=== PATIENT | female | born 1965 | race Two or more races ===

== ENCOUNTER 2016-03-08 17:11 | Observation (INO) | payer OTHER ==
[2016-03-08] MEDS ORDERED: ASPIRIN 81 MG TABLET, CHEWABLE PO ONE (17:16)
--- NOTE | 2016-03-08 18:40 | ER Document Report ---
ED Medical Screen (RME) - General Chief Complaint: Leg Swelling Stated Complaint: LEG PRESSURE AND CHEST PAIN Notes: 50 yo female sent from Urgent care for bilat lower leg pain and swelling and left sided chest pain intermittantly x 2-3 days. + recent car trip to [place] , 6hr in vehicle. + hx/o HTN, recent stroke in September. no residual deficits. non smoker. TRAVEL OUTSIDE OF THE [place] IN LAST 30 DAYS: No - Related Data Allergies/Adverse Reactions: codeine [Codeine] Allergy (Severe, Verified 03/08/16 18:01) nausea,dizziness Past Medical History - Social History Chew tobacco use (# tins/day): No Frequency of alcohol use: None - Past Medical History Cardiac Medical History: Reports: Hx Heart Attack, Hx Hypertension - meds 5 yrs Denies: Hx Coronary Artery Disease Pulmonary Medical History: Denies: Hx Asthma, Hx Bronchitis, Hx COPD, Hx Pneumonia Neurological Medical History: Reports: Hx Migraine. Denies: Hx Cerebrovascular Accident, Hx Seizures Musculoskeltal Medical History: Denies Hx Arthritis Psychiatric Medical History: Reports: Hx Depression Past Surgical History: Reports: Hx Orthopedic Surgery - right carpal tunnel surgery 2010 - Immunizations Immunizations up to date: Yes Hx Diphtheria, Pertussis, Tetanus Vaccination: Yes Physical Exam - Vital signs Vitals: Temp Pulse Resp BP Pulse Ox 98.1 F 72 16 140/85 H 98 03/08/16 18:02 03/08/16 18:02 03/08/16 18:02 03/08/16 18:02 03/08/16 18:02 Course - Vital Signs Vital signs: Temp Pulse Resp BP Pulse Ox 98.1 F 72 16 140/85 H 98 03/08/16 18:02 03/08/16 18:02 03/08/16 18:02 03/08/16 18:02 03/08/16 18:02
[2016-03-08 19:05] LABS: ABSOLUTE BASOPHILS # (AUTO) 0.1 10^3/uL (0.0-0.2); ABSOLUTE EOSINOPHILS # (AUTO) 0.2 10^3/uL (0.0-0.6); ABSOLUTE LYMPHOCYTES (AUTO) 2.8 10^3/uL (0.5-4.7); ABSOLUTE MONOCYTES (AUTO) 0.5 10^3/uL (0.1-1.4); ABSOLUTE NEUT (AUTO) 4.6 10^3/uL (1.7-8.2); BASOPHILS % (AUTO) 0.7 % (0-2); EOSINOPHILS % (AUTO) 2.3 % (0-6); HEMATOCRIT 38.2 % (36.0-47.0); HEMOGLOBIN 12.7 g/dL (12.0-15.5); HGB HCT DIFFERENCE -0.1; LYMPHOCYTES % (AUTO) 34.2 % (13-45); MEAN CORPUSCULAR HEMOGLOBIN 27.5 pg (27.0-33.4); MEAN CORPUSCULAR HGB CONC 33.2 g/dL (32.0-36.0); MEAN CORPUSCULAR VOLUME 83 fl (80-97); MONOCYTES % (AUTO) 6.5 % (3-13); RED BLOOD COUNT 4.61 10^6/uL (3.72-5.28); RED CELL DISTRIBUTION WIDTH 14.2 % (11.5-14.0); SEGMENTED NEUTROPHILS % (AUTO) 56.3 % (42-78); WHITE BLOOD COUNT 8.1 10^3/uL (4.0-10.5)
[2016-03-08 19:18] LABS: ALANINE AMINOTRANSFERASE 54 U/L (9-52); ALBUMIN 4.9 g/dL (3.5-5.0); ALKALINE PHOSPHATASE 82 U/L (38-126); ANION GAP 14 (5-19); ASPARTATE AMINO TRANSFERASE 31 U/L (14-36); BILIRUBIN,TOTAL 0.6 mg/dL (0.2-1.3); BLOOD UREA NITROGEN 14 mg/dL (7-20); CALCIUM 10.1 mg/dL (8.4-10.2); CARBON DIOXIDE 26 mmol/L (22-30); CHLORIDE 103 mmol/L (98-107); CREATINE KINASE 104 U/L (30-135); CREATININE RESULT 0.68 mg/dL (0.52-1.25); GLUCOSE 87 mg/dL (75-110); POTASSIUM 3.9 mmol/L (3.6-5.0); SODIUM 142.6 mmol/L (137-145); TOTAL PROTEIN 7.6 g/dL (6.3-8.2)
[2016-03-08 19:31] LABS: TROPONIN I < 0.012 ng/mL
--- NOTE | 2016-03-08 21:47 | ER Document Report ---
ED Extremity Problem, Lower - General Mode of Arrival: Ambulatory Information source: Patient, Relative TRAVEL OUTSIDE OF THE [place] IN LAST 30 DAYS: No - HPI Patient complains to provider of: Pain Associated symptoms: Other - See above <LARRY JONES - Last Filed: 03/08/16 23:09> <ANNETTA ZABALA - Last Filed: 03/23/16 01:16> - General Chief Complaint: Leg Pain Stated Complaint: leg pain Notes: Patient is a 50-year-old female, with past medical history including CVA and hypertension, who presents to the emergency department with her daughter for bilateral leg pain after visiting [facility]. Patient is Persian-speaking, and the daughter at bedside is translating. Patient recently went on a [address] [place] the [place], about 2-3 days ago she developed left shoulder and left arm pain and this afternoon around noon she started having chest pain she describes as constant pressure which occurred when she was standing up and making sandwiches. Patient states the chest pain is exacerbated by walking but that her legs hurt more when she walks. Patient denies nausea, vomiting, and diarrhea. She states she did take a baby aspirin today. (LARRY JONES) - Related Data Allergies/Adverse Reactions: codeine [Codeine] Allergy (Severe, Verified 03/08/16 18:01) nausea,dizziness Home Medications: Current Home Medications Atorvastatin Calcium 10 mg PO DAILY 03/09/16 [History] Buspirone HCl [Buspar 5 mg Tablet] 5 mg PO BID 03/09/16 [History] Lisinopril/Hydrochlorothiazide [Lisinopril-Hctz 20-12.5 mg Tab] 10 mg PO BID 07/19 [History] Past Medical History - General Information source: Patient - Social History Smoking Status: Never Smoker Chew tobacco use (# tins/day): No Frequency of alcohol use: None Family History: None, Reviewed & Not Pertinent Patient has suicidal ideation: No Patient has homicidal ideation: No - Past Medical History Cardiac Medical History: Reports: Hx Hypercholesterolemia, Hx Hypertension - meds 5 yrs Neurological Medical History: Reports: Hx Cerebrovascular Accident, Hx Migraine Psychiatric Medical History: Reports: Hx Depression Past Surgical History: Reports: Hx Orthopedic Surgery - right carpal tunnel surgery 2010 - Immunizations Immunizations up to date: Yes Hx Diphtheria, Pertussis, Tetanus Vaccination: Yes <LARRY JONES - Last Filed: 03/08/16 23:09> Review of Systems - Review of Systems Constitutional: No symptoms reported EENT: No symptoms reported Cardiovascular: See HPI, Chest pain Respiratory: No symptoms reported Gastrointestinal: No symptoms reported Genitourinary: No symptoms reported Female Genitourinary: No symptoms reported Musculoskeletal: See HPI, Joint pain - left shoulder, Other - leg pain Skin: No symptoms reported Hematologic/Lymphatic: No symptoms reported Neurological/Psychological: No symptoms reported -: Yes All other systems reviewed and negative <LARRY JONES - Last Filed: 03/08/16 23:09> Physical Exam - Vital signs Interpretation: Normal - General General appearance: Appears well, Alert, Other - Persian interpretor at bedside - HEENT Head: Normocephalic, Atraumatic - Respiratory Respiratory status: No respiratory distress Chest status: Tender - Reproducable left anterior chest wall tenderness Breath sounds: Normal Chest palpation: Normal - Cardiovascular Rhythm: Regular Heart sounds: Normal auscultation Murmur: No - Extremities General upper extremity: Normal inspection General lower extremity: Normal inspection - Neurological Neuro grossly intact: Yes Cognition: Normal Orientation: AAOx4 [place] Coma Scale Eye Opening: Spontaneous Ritesh Coma Scale Verbal: Oriented Ritesh Coma Scale Motor: Obeys Commands Ritesh Coma Scale Total: 15 Speech: Normal - Psychological Associated symptoms: Normal affect, Normal mood - Skin Skin Temperature: Warm Skin Moisture: Dry Skin Color: Normal <LARRY JONES - Last Filed: 03/08/16 23:09> Course - Laboratory Result Diagrams: 03/08/16 18:50 03/08/16 18:50 <LARRY JONES - Last Filed: 03/08/16 23:09> - Laboratory Result Diagrams: 03/08/16 18:50 03/08/16 18:50 <ANNETTA ZABALA - Last Filed: 03/23/16 01:16> - Re-evaluation Re-evalutation: 03/08/16 23:25 I personally performed the services described in the documentation, reviewed and edited the documentation which was dictated to my scribe in my presence, and it accurately records my words and actions. Patient presents emergency Department with the chief complaint of left-sided chest pressure and pain in bilateral legs. She was sent over from [facility] which is her primary care physician she had a stroke in August of this year otherwise no cardiac history of AK PE dissection or DVT. Also had mentioned that she recently came from a trip to [place] she is not tachypneic tachycardic or hypoxic on ED arrival nor she hypertensive. They have left-sided chest pain improved with aspirin. CT PE study is negative duplex ultrasound of bilateral lower extremities is negative. Initial troponin negative acute EKG sinus with mild LVH no acute ST segment elevation or depression. admitted to the hospital for observation chest pain further assessment and evaluation 03/08/16 23:38 Dr. Walters accepted the care of the patient (ANNETTA ZABALA) - Vital Signs Vital signs: Temp Pulse Resp BP Pulse Ox 98.4 F 103 H 20 107/65 98 03/09/16 15:00 03/09/16 15:00 03/09/16 15:00 03/09/16 15:00 03/09/16 15:00 (LARRY JONES) (ANNETTA ZABALA) - Laboratory Laboratory results interpreted by me: 03/08/16 03/08/16 18:50 18:50 RDW 14.2 H ALT 54 H (LARRY JONES) (ANNETTA ZABALA) Critical Care Note - Critical Care Note Total time excluding time spent on procedures (mins): 45 <ANNETTA ZABALA - Last Filed: 03/23/16 01:16> Discharge <LARRY JONES - Last Filed: 03/08/16 23:09> - Discharge Admitting Provider: Hospitalist Unit Admitted: Telemetry <ANNETTA ZABALA - Last Filed: 03/23/16 01:16> - Discharge Clinical Impression: Chest pain Qualifiers: Chest pain type: unspecified Qualified Code(s): R07.9 - Chest pain, unspecified Condition: Stable Disposition: ADMITTED OBSERVATION Scribe Documentation - Scribe Written by Scribe:: erin Whyte, 03/08/16, [id number] acting as scribe for :: Jewel <LARRY JONES - Last Filed: 03/08/16 23:09>
[2016-03-08] MEDS ORDERED: ONDANSETRON HCL INJ/PF 4 MG/2 ML SDV IV ONE (22:39)
[2016-03-08] MEDS ORDERED: ASPIRIN 325 MG TABLET PO ONE (22:39)
--- NOTE | 2016-03-08 23:03 | EKG REPORT ---
SEVERITY:- ABNORMAL ECG - SINUS RHYTHM LEFT VENTRICULAR HYPERTROPHY : Confirmed by: Socorro Pike 08-Mar-2016 23:03:07
[2016-03-08] MEDS ORDERED: LACTULOSE SYRUP 20 GM/30 ML UDCUP PO ONE (23:39)
[2016-03-08] MEDS ORDERED: PROCHLORPERAZINE MALEATE 5 MG TABLET PO PRN (23:39)
[2016-03-08] MEDS ORDERED: NITROGLYCERIN 0.4 MG/TAB 25 TAB/BOTTLE SL PRN (23:41)
[2016-03-08] MEDS ORDERED: ACETAMINOPHEN 325 MG TABLET PO PRN (23:43)
--- NOTE | 2016-03-09 02:32 | PDOC H&P ---
History of Present Illness Admission Date/PCP: 03/08/16 23:41 Patient complains of: Left shoulder and bilateral leg pain History of Present Illness: JAKOB BUSTOS is a 50 year old Gambian speaking female with daughter as spinning bath person revealing history of hypertension dyslipidemia and anxiety who had been in her usual state of health until 3 days ago noting left shoulder pain reproduced by activity with the upper extremity not associated with nausea vomiting shortness but admits palpitations. Episodes last approximately 1 hour she is unable to identify alleviating factors denying use of NSAIDs denying abrupt onset. Patient also complains of leg cramping from the foot through the calf to the buttocks bilaterally occurring while walking alleviated by rest she denies trauma or edema. Patient denies any recent change in medications or exacerbation of anxiety Past Medical History Cardiac Medical History: Reports: Hyperlipidema, Hypertension - meds 5 yrs Denies: Coronary Artery Disease, Myocardial Infarction Pulmonary Medical History: Denies: Asthma, Bronchitis, Chronic Obstructive Pulmonary Disease (COPD), Pneumonia Neurological Medical History: Reports: Migraine Denies: Seizures Musculoskeltal Medical History: Denies: Arthritis Psychiatric Medical History: Reports: Depression, General Anxiety Disorder Hematology: Denies: Anemia Past Surgical History Past Surgical History: Reports: Orthopedic Surgery - right carpal tunnel surgery 2010 Social History Information Source: Patient, Relative Lives with: Family Smoking Status: Never Smoker Frequency of Alcohol Use: None Hx Recreational Drug Use: No Drugs: None Hx Prescription Drug Abuse: No - Advance Directive Resuscitation Status: Full Code Family History Family History: Hypertension Parental Family History Reviewed: Yes Children Family History Reviewed: Yes Sibling(s) Family History Reviewed.: Yes Medication/Allergy Home Medications: Atorvastatin Calcium 10 mg PO DAILY 03/09/16 Buspirone HCl [Buspar 5 mg Tablet] 5 mg PO BID 03/09/16 Lisinopril/Hydrochlorothiazide [Lisinopril-Hctz 20-12.5 mg Tab] 10 mg PO BID 07/19 Allergies/Adverse Reactions: codeine [Codeine] Allergy (Severe, Verified 03/08/16 18:01) nausea,dizziness Review of Systems Constitutional: ABSENT: chills, fever(s), headache(s), weight gain, weight loss Eyes: ABSENT: visual disturbances Ears: ABSENT: hearing changes Cardiovascular: ABSENT: chest pain, dyspnea on exertion, edema, orthropnea, palpitations Respiratory: ABSENT: cough, hemoptysis Gastrointestinal: ABSENT: abdominal pain, constipation, diarrhea, hematemesis, hematochezia, nausea, vomiting Genitourinary: ABSENT: dysuria, hematuria Musculoskeletal: ABSENT: joint swelling Integumentary: ABSENT: rash, wounds Neurological: ABSENT: abnormal gait, abnormal speech, confusion, dizziness, focal weakness, syncope Psychiatric: ABSENT: anxiety, depression, homidical ideation, suicidal ideation Endocrine: ABSENT: cold intolerance, heat intolerance, polydipsia, polyuria Hematologic/Lymphatic: ABSENT: easy bleeding, easy bruising Physical Exam Vital Signs: Temp Pulse Resp BP Pulse Ox 98.1 F 72 14 117/92 H 97 03/09/16 01:01 03/08/16 18:02 03/09/16 02:01 03/09/16 02:00 03/09/16 02:01 General appearance: PRESENT: no acute distress, well-developed, well-nourished Head exam: PRESENT: atraumatic, normocephalic Eye exam: PRESENT: conjunctiva pink, EOMI, PERRLA. ABSENT: scleral icterus Ear exam: PRESENT: normal external ear exam Mouth exam: PRESENT: moist, tongue midline Neck exam: ABSENT: carotid bruit, JVD, lymphadenopathy, thyromegaly Respiratory exam: PRESENT: clear to auscultation olga. ABSENT: rales, rhonchi, wheezes Cardiovascular exam: PRESENT: RRR, other - Left pectoralis muscle pain with palpation. She agrees this is the pain for which she seeks evaluation. ABSENT : diastolic murmur, rubs, systolic murmur Pulses: PRESENT: normal dorsalis pedis pul Vascular exam: PRESENT: normal capillary refill GI/Abdominal exam: PRESENT: normal bowel sounds, soft. ABSENT: distended, guarding, mass, organolmegaly, rebound, tenderness Rectal exam: PRESENT: deferred Extremities exam: PRESENT: full ROM. ABSENT: calf tenderness, clubbing, pedal edema Neurological exam: PRESENT: alert, awake, oriented to person, oriented to place , oriented to time, oriented to situation, CN II-XII grossly intact. ABSENT: motor sensory deficit Psychiatric exam: PRESENT: appropriate affect, normal mood. ABSENT: homicidal ideation, suicidal ideation Skin exam: PRESENT: dry, intact, warm. ABSENT: cyanosis, rash Results Impressions: Chest X-Ray 03/08/16 17:16 IMPRESSION: NO ACUTE RADIOGRAPHIC FINDING IN THE CHEST. Chest/Abdomen CTA 03/08/16 21:52 IMPRESSION: No emboli visualized in the main pulmonary arteries. No acute cardiopulmonary findings. Assessment & Plan - Diagnosis (1) Chest pain Qualifiers: Chest pain type: unspecified Qualified Code(s): R07.9 - Chest pain, unspecified Is this a current diagnosis for this admission?: YesPlan: Patient with risk factors for coronary artery disease she'll be observed on a monitored bed with a chest pain care set evaluated for acute coronary syndrome intersections for coronary artery disease and a Cardiolite stress test however as this is reproducible I strongly suspect muscle skeletal strain to the pectoralis minor on the left she receives symptomatically management (2) Anxiety Is this a current diagnosis for this admission?: YesPlan: Unclear control continue outpatient regiment consider optimization of BuSpar or different agent with outpatient mental health follow-up - Time Time Spent: 30 to 50 Minutes
[2016-03-09] MEDS ORDERED: INFLUENZA ADLT QUAD (36MOS+) 2016-17 VAC 0.5 ML SYR IM PRN (03:21)
[2016-03-09 05:10] LABS: CHOLESTEROL 163.19 mg/dL (0-200); CREATINE KINASE 88 U/L (30-135); Direct HDL 49 mg/dL (>40); TRIGLYCERIDES 126 mg/dL (<150)
[2016-03-09 05:21] LABS: DIRECT LDL 94 mg/dL (<100)
[2016-03-09 05:23] LABS: CREATINE KINASE MB 0.52 ng/mL (<4.55)
[2016-03-09 05:30] LABS: TROPONIN I < 0.012 ng/mL
[2016-03-09] MEDS: HEPARIN SOD (PORCINE) 5,000 UNIT/ML 1 ML SYRINGE SUBCUT SCH ×2 (06:13→13:37)
[2016-03-09] MEDS ORDERED: ATORVASTATIN CALCIUM 10 MG TABLET PO SCH (08:00)
[2016-03-09] MEDS ORDERED: (PENDING PHARMACY ID) (Lisinopril/Hydrochlorothiazide [Lisinopril-Hctz 20-25 Mg Tab] 1 TAB PO SCH (08:00)
[2016-03-09] MEDS ORDERED: LISINOPRIL 10 MG TABLET PO SCH (08:00)
[2016-03-09] MEDS ORDERED: HYDROCHLOROTHIAZIDE 25 MG TABLET PO SCH (08:00)
--- NOTE | 2016-03-09 08:02 | XCELERA REPORT ---
[address] [address] Lower Extremity Venous Evaluation Name: JAKOB BUSTOS Age: 50 yrs Gender: Female : 1965 Patient Status: Emergency Patient Location: ER Study Date: 03/08/2016 09:17 PM Procedure: Color flow and duplex imaging bilaterally of the veins of the lower extremities as well as the Common Femoral veins. Reason For Study: bilat lower leg swelling Ordering Physician: BRYNN KILGORE Performed By: Liya Marrero Right Sided Venous Evaluation Normal vessel filling wall to wall, compression and augmentation as well as Colour flow down to the infrageniculate veins. Left Sided Venous Evaluation Enlarged , non filling veins of the below knee, Greater Saphenous veins. Otherwise normal vessel filling wall to wall, compression and augmentation as well as Colour flow down to the infrageniculate veins. Critical Findings Called in to the ER. Interpretation Summary No duplex evidence of DVT or obstruction in the bilateral lower extremities. Some superficial phlebitis. in the below knee Greater Saphenous vein. : BRYNN KILGORE > Nacho Garner
[2016-03-09] MEDS ORDERED: POLYETHYLENE GLYCOL 3350 POWDER 17 GM/1 PACKET PO ONE (08:55)
[2016-03-09] MEDS ORDERED: KETOROLAC TROMETHAMINE INJ/PF 30 MG/1 ML SDV IV PRN (08:55)
[2016-03-09] MEDS ORDERED: DOCUSATE SODIUM 100 MG CAPSULE PO SCH (10:00)
[2016-03-09 12:30] LABS: TROPONIN I < 0.012 ng/mL
[2016-03-09] MEDS ORDERED: REGADENOSON INJ 0.4 MG/5 ML DISP.SYRIN IV ONE (13:19)
[2016-03-09 15:05] VITALS: BP 107/65
--- NOTE | 2016-03-09 15:56 | PDOC DISCHARGE SUMMARY ---
General - Admit/Disc Date/PCP Admission Date/Primary Care Provider: 03/08/16 23:41 Discharge Date: 03/09/16 - Discharge Diagnosis (1) Chest pain Is this a current diagnosis for this admission?: YesSummary: Ruled out for acute coronary syndrome, most likely GERD. Cardiolite stress with EF of 30% (2) Anxiety Is this a current diagnosis for this admission?: YesSummary: Continue home medications (3) Dyslipidemia Is this a current diagnosis for this admission?: YesSummary: Continue statin (4) Essential hypertension Is this a current diagnosis for this admission?: YesSummary: Continue current medications normotensive presently - Additional Information Resuscitation Status: Full Code Discharge Diet: Cardiac Discharge Activity: Activity As Tolerated, Balance Activity w/Rest Home Medications: Acetaminophen [Tylenol 325 mg Tablet] 650 mg PO Q6HP PRN tablet 03/09/16 Atorvastatin Calcium 10 mg PO DAILY 03/09/16 Atorvastatin Calcium [Lipitor 10 mg Tablet] 10 mg PO QAM tablet 03/09/16 Buspirone HCl [Buspar 5 mg Tablet] 5 mg PO BID 03/09/16 Lisinopril/Hydrochlorothiazide [Lisinopril-Hctz 20-12.5 mg Tab] 10 mg PO BID 07/19 Naproxen 500 mg PO BID PRN #60 tablet 03/09/16 History of Present Illness Patient complains of: Left shoulder pain History of Present Illness: JAKOB BUSTOS is a 50 year old female who presented to the ED with left shoulder pain. She has a history of CVA, essential hypertension and dyslipidemia. First troponin was negative. EKG is unremarkable for changes of ischemia. She had a CTA of chest and abdomen which was negative. She also complained of bilateral leg pain from feet to hips bilaterally Her pain was reproducible with movement of her left shoulder. She was for referred to the hospital service for admission. Hospital Course Hospital Course: Patient was admitted to telemetry. She had serial troponins done to rule out acute coronary syndrome. She had no further pain overnight. 3 sets of troponins were all negative. She underwent Cardiolite stress testing this morning. Cardiolite was read by Dr Shepherd, who felt patient had an old infarct with an EF of 35%. No new signs of ischemia. She will be discharged home with prescription of naproxyn for the shoulder pain and follow up with Dr Ellsworth at next available Physical Exam Vital Signs: Temp Pulse Resp BP Pulse Ox 98.4 F 103 H 20 107/65 98 03/09/16 15:00 03/09/16 15:00 03/09/16 15:00 03/09/16 15:00 03/09/16 15:00 Intake & Output 03/08/16 03/09/16 03/10/16 06:59 06:59 06:59 Intake Total 0 Output Total 0 Balance 0 Weight 80.2 kg General appearance: PRESENT: no acute distress, obese, well-developed, well- nourished Head exam: PRESENT: atraumatic, normocephalic Eye exam: PRESENT: conjunctiva pink, EOMI, PERRLA. ABSENT: scleral icterus Ear exam: PRESENT: normal external ear exam Neck exam: ABSENT: carotid bruit, JVD, lymphadenopathy, thyromegaly Respiratory exam: PRESENT: clear to auscultation olga. ABSENT: rales, rhonchi, wheezes Cardiovascular exam: PRESENT: RRR. ABSENT: diastolic murmur, rubs, systolic murmur Pulses: PRESENT: normal dorsalis pedis pul Vascular exam: PRESENT: normal capillary refill GI/Abdominal exam: PRESENT: normal bowel sounds, soft. ABSENT: distended, guarding, mass, organolmegaly, rebound, tenderness Rectal exam: PRESENT: deferred Extremities exam: PRESENT: full ROM. ABSENT: calf tenderness, clubbing, pedal edema Neurological exam: PRESENT: alert, awake, oriented to person, oriented to place , oriented to time, oriented to situation, CN II-XII grossly intact. ABSENT: motor sensory deficit Psychiatric exam: PRESENT: appropriate affect, normal mood. ABSENT: homicidal ideation, suicidal ideation Skin exam: PRESENT: dry, intact, warm. ABSENT: cyanosis, rash Results Laboratory Results: 03/09/16 04:42 Triglycerides 126 Cholesterol 163.19 LDL Cholesterol Direct 94 VLDL Cholesterol 25.0 HDL Cholesterol 49 03/09/16 03/09/16 03/09/16 04:42 04:42 11:25 Creatine Kinase 88 CK-MB (CK-2) 0.52 0.40 Troponin I < 0.012 < 0.012 Impressions: Chest X-Ray 03/08/16 17:16 IMPRESSION: NO ACUTE RADIOGRAPHIC FINDING IN THE CHEST. Chest/Abdomen CTA 03/08/16 21:52 IMPRESSION: No emboli visualized in the main pulmonary arteries. No acute cardiopulmonary findings. Qualifiers PATEINT BEING DISCHARGED WITH ANY OF THE FOLLOWING DIAGNOSIS?: No Plan Discharge Plan: Discharge home. Follow up with Dr Ellsworth and PCP in one week. She was given prescription for Naproxen for shoulder pain Time Spent: Less than 30 Minutes
--- NOTE | 2016-03-11 12:38 | DRAGON STRESS TEST REPORT ---
Intravenous Lexiscan Cardiolite stress test using single photon emmision computerized tomography. Date of procedure: 03/09/2016. Ordering Provider: Dr. Alexi Walters Indication: Chest pain. Coronary risk factors: Age, hypertension, and dyslipidemia Resting EKG: Sinus Rhythm. There is poor R wave in leads V1 to V6. Stress EKG: No changes of ischemia. The patient had no chest pain or discomfort. She had vomiting 2, and this subsided after she drank Pepsi. There were no arrhythmias seen. Reason for termination: Protocol. Conclusions: Normal EKG and hemodynamic response to IV Lexiscan. Nuclear data: At rest the patient was given 11.29 millicuries of technetium 99m sestamibi injected intravenously. As per protocol rest non gated SPECT images were obtained. Subsequently the patient was given intravenous Lexiscan at a dose of 0.4 mg in 5 mL intravenously, followed by flush with normal saline. Subsequently the stress dose of 32.4 millicuries of technetium 99m sestamibi was injected intravenously. As per protocol stress gated images were obtained. Nuclear interpretation: Review of images showed that all segments of the myocardium had normal perfusion at rest, and normal perfusion post stress with IV Lexiscan. All segments of the myocardium had normal motion, contraction, and thickening by gated study. T. I D. ratio was normal at 0.94 Computer read rest, and stress left ventricular ejection fraction were 67 %, and 76 %, respectively. Conclusion: 1. There is no scintigraphic evidence of Lexiscan induced myocardial ischemia. 2. There is no scintigraphic evidence of myocardial infarction/scar. Recommendations: Aggressive risk factor modification, and treating the underlying co- morbidities. MTDD
== END 2016-03-09 16:03 | disposition home or self-care (01) ==
LOC: ER 17:11 → EH 23:41 → UNDOADMOB 23:59 → EH 23:59 → 4S 03-09 02:30
PROVIDERS: ADMIT Internal Medicine; ATTEND Internal Medicine
PROC: 3E0234Z Introduction of Serum, Toxoid and Vaccine into Muscle, Percutaneous Approach (ICD-10-PCS; principal; 2016-03-08)
DX: R07.9 Chest pain, unspecified (principal); F41.9 Anxiety disorder, unspecified; E78.5 Hyperlipidemia, unspecified; I10 Essential (primary) hypertension; Z86.73 Personal history of transient ischemic attack (TIA), and cerebral infarction without residual deficits; M25.512 Pain in left shoulder; M79.605 Pain in left leg; M79.604 Pain in right leg; Z23 Encounter for immunization
CPT/HCPCS: 93005; 99291; 96374; 36415 ×2; 82553 ×2; 82550 ×2; 84443; 85025; 80053; 84484 ×2; 80061; 93970 ×2; 93017; 71010; 78452; 71275; 90686; 93010; 90471; G0378 ×2; A9500; J2785; J1644; J3490 ×2; J1885; J2405; Q9969

== ENCOUNTER 2016-04-28 16:25 | Emergency (ER) | payer OTHER ==
--- NOTE | 2016-04-28 16:54 | ER Document Report ---
ED Medical Screen (RME) - General Stated Complaint: CHEST PAIN Notes: for 3 days patient complaining of left hand numbness/tingling along ulnar distribution. she states she notices it most when she is driving, and she states its like she hit her funny bone [place] [facility] [place] I have greeted and performed a rapid initial assessment of this patient. A comprehensive ED assessment and evaluation of the patient, analysis of test results and completion of the medical decision making process will be conducted by additional ED providers. TRAVEL OUTSIDE OF THE [place] IN LAST 30 DAYS: No - Related Data Allergies/Adverse Reactions: codeine [Codeine] Allergy (Severe, Verified 04/28/16 16:50) nausea,dizziness Past Medical History - Past Medical History Cardiac Medical History: Reports: Hx Hypercholesterolemia, Hx Hypertension Denies: Hx Coronary Artery Disease, Hx Heart Attack Pulmonary Medical History: Denies: Hx Asthma, Hx Bronchitis, Hx COPD, Hx Pneumonia Neurological Medical History: Reports: Hx Cerebrovascular Accident, Hx Migraine. Denies: Hx Seizures GI Medical History: Reports: Hx Gastroesophageal Reflux Disease Musculoskeltal Medical History: Denies Hx Arthritis Psychiatric Medical History: Reports: Hx Depression Past Surgical History: Reports: Hx Orthopedic Surgery - right carpal tunnel surgery 2010 - Immunizations Immunizations up to date: Yes Hx Diphtheria, Pertussis, Tetanus Vaccination: Yes Physical Exam - Vital signs Vitals: Temp Pulse Resp BP Pulse Ox 98.2 F 93 19 127/84 H 98 04/28/16 16:38 04/28/16 16:38 04/28/16 16:38 04/28/16 16:38 04/28/16 16:38 Course - Vital Signs Vital signs: Temp Pulse Resp BP Pulse Ox 98.2 F 93 19 127/84 H 98 04/28/16 16:38 04/28/16 16:38 04/28/16 16:38 04/28/16 16:38 04/28/16 16:38
--- NOTE | 2016-04-28 16:57 | EKG REPORT ---
SEVERITY:- NORMAL ECG - SINUS RHYTHM : Confirmed by: Soniya Dean MD 28-Apr-2016 16:56:15
[2016-04-28] MEDS ORDERED: ASPIRIN 81 MG TABLET, CHEWABLE PO ONE (19:11)
--- NOTE | 2016-04-28 19:13 | ER Document Report ---
ED General - General Chief Complaint: Chest Pain Stated Complaint: CHEST PAIN Time seen by provider: 19:10 Notes: Patient is a 50-year-old female that comes emergency department for chief complaint of pain in her left arm, she states she also has pain in the top of her left shoulder and also some pain in her upper left chest area. Symptoms have been intermittent for about 3 days. Patient states she told her provider about this and they told her to come in and be evaluated in the emergency department. Patient states she works 3 jobs, states that she feels the pain is related to the work she just wants to be checked out to make sure. She states currently she feels pain at the top and back of her left shoulder and also intermittently in her forearm, denies any other symptoms including nausea, vomiting, shortness of breath. Patient states she was told she had a heart attack last August, she denies having a cardiac catheterization or stent, she states she did have a stress test. Patient denies smoking, past medical history of hypertension, hyperlipidemia. TRAVEL OUTSIDE OF THE [place] IN LAST 30 DAYS: No - Related Data Allergies/Adverse Reactions: codeine [Codeine] Allergy (Severe, Verified 04/28/16 16:50) nausea,dizziness Past Medical History - General Information source: Patient - Social History Smoking Status: Never Smoker Chew tobacco use (# tins/day): No Frequency of alcohol use: None Drug Abuse: None Lives with: Family Family History: Hypertension Patient has suicidal ideation: No Patient has homicidal ideation: No - Past Medical History Cardiac Medical History: Reports: Hx Hypercholesterolemia, Hx Hypertension Denies: Hx Coronary Artery Disease, Hx Heart Attack Pulmonary Medical History: Denies: Hx Asthma, Hx Bronchitis, Hx COPD, Hx Pneumonia Neurological Medical History: Reports: Hx Cerebrovascular Accident, Hx Migraine. Denies: Hx Seizures Renal/ Medical History: Denies: Hx Peritoneal Dialysis GI Medical History: Reports: Hx Gastroesophageal Reflux Disease Musculoskeltal Medical History: Denies Hx Arthritis Psychiatric Medical History: Reports: Hx Depression Past Surgical History: Reports: Hx Orthopedic Surgery - right carpal tunnel surgery 2010 - Immunizations Immunizations up to date: Yes Hx Diphtheria, Pertussis, Tetanus Vaccination: Yes Review of Systems - Review of Systems Constitutional: No symptoms reported EENT: No symptoms reported Cardiovascular: See HPI Respiratory: No symptoms reported Gastrointestinal: No symptoms reported Genitourinary: No symptoms reported Female Genitourinary: No symptoms reported Musculoskeletal: See HPI Skin: No symptoms reported Hematologic/Lymphatic: No symptoms reported Neurological/Psychological: No symptoms reported Physical Exam - Vital signs Vitals: Temp Pulse Resp BP Pulse Ox 98.2 F 93 19 127/84 H 98 04/28/16 16:38 04/28/16 16:38 04/28/16 16:38 04/28/16 16:38 04/28/16 16:38 Interpretation: Normal - General General appearance: Appears well, Alert In distress: None - Patient alert and well-appearing - HEENT Head: Normocephalic, Atraumatic Eyes: Normal Pupils: PERRL - Respiratory Respiratory status: No respiratory distress Chest status: Nontender. No: Tender Breath sounds: Normal. No: Nonproductive cough, Wheezing Chest palpation: Normal - Cardiovascular Rhythm: Regular Heart sounds: Normal auscultation Murmur: No - Abdominal Inspection: Normal Distension: No distension Bowel sounds: Normal Tenderness: Nontender Organomegaly: No organomegaly - Back Back: Normal, Nontender - Extremities General upper extremity: Other - Patient complains with palpation over the left trapezius muscle and general shoulder and deltoid. Patient also complains with palpation over the elbow generally. Full range of motion is present although patient complains with movement of pain in her left shoulder. No ecchymosis, normal distal neurovascular exam, normal examination otherwise General lower extremity: Normal inspection, Nontender, Normal color, Normal ROM , Normal temperature, Normal weight bearing. No: Christopher's sign - Neurological Neuro grossly intact: Yes Cognition: Normal Orientation: AAOx4 [place] Coma Scale Eye Opening: Spontaneous Ritesh Coma Scale Verbal: Oriented [place] Coma Scale Motor: Obeys Commands [place] Coma Scale Total: 15 Speech: Normal Motor strength normal: LUE, RUE, LLE, RLE Sensory: Normal - Psychological Associated symptoms: Normal affect, Normal mood - Skin Skin Temperature: Warm Skin Moisture: Dry Skin Color: Normal Course - Re-evaluation Re-evalutation: EKG sinus rhythm with no ST segment changes or T-wave inversions in consecutive leads. Chest x-ray unremarkable. CBC, chemistry, troponin unremarkable except for mild hypokalemia which was supplemented. On reevaluation patient only complaining of pain at the top and back of her left shoulder. This is worse with movement. Denying any chest pain. Symptoms have been intermittent and present for 3 days. Patient is asking to leave. 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 Review of patient's recent history shows that patient was admitted for chest pain rule out last month, diagnosed with shoulder pain and discharged on naproxen, patient had a stress test which showed an EF of 35% and the fermenter suspected patient may have had a previous WA. After discussion patient will be given a muscle relaxant, a few pain medication to take at night because she is having difficulty sleeping because of shoulder pain, she is given work release note because she states she is working too much , discussed return precautions and follow-up. Patient states satisfaction and agreement. - Vital Signs Vital signs: Temp Pulse Resp BP Pulse Ox 98.2 F 93 19 127/84 H 98 04/28/16 16:38 04/28/16 16:38 04/28/16 16:38 04/28/16 16:38 04/28/16 16:38 - Laboratory Result Diagrams: 04/28/16 20:05 04/28/16 20:05 Laboratory results interpreted by me: 04/28/16 04/28/16 20:05 20:05 RDW 14.3 H Potassium 3.3 L Discharge - Discharge Clinical Impression: Shoulder pain Qualifiers: Laterality: left Chronicity: acute Qualified Code(s): M25.512 - Pain in left shoulder Chest pain Qualifiers: Chest pain type: unspecified Qualified Code(s): R07.9 - Chest pain, unspecified Forearm pain Qualifiers: Laterality: left Qualified Code(s): M79.632 - Pain in left forearm Condition: Stable Disposition: HOME, SELF-CARE Additional Instructions: Your workup today shows slightly low potassium, no other abnormalities are seen. Rest and ice your shoulder, take the robaxin muscle relaxer, if symptoms of numbness and tingling continue in your forearm and hand please follow-up with orthopedics for additional management (see referral). Take the pain medication given to go home with if needed for your shoulder Return to emergency department for any concerning or worsening symptoms - pain in your chest, swelling in your feet, shortness of breath, etc. Prescriptions: Methocarbamol [Robaxin 750 mg Tablet] 750 mg PO Q6 #20 tablet Forms: Return to Work Referrals: BOBBY BOYLE DO [ACTIVE STAFF] - Follow up as needed
[2016-04-28 20:19] LABS: ABSOLUTE EOSINOPHILS # (AUTO) 0.2 10^3/uL (0.0-0.6); ABSOLUTE LYMPHOCYTES (AUTO) 2.5 10^3/uL (0.5-4.7); ABSOLUTE MONOCYTES (AUTO) 0.5 10^3/uL (0.1-1.4); ABSOLUTE NEUT (AUTO) 4.4 10^3/uL (1.7-8.2); BASOPHILS % (AUTO) 0.4 % (0-2); EOSINOPHILS % (AUTO) 2.4 % (0-6); HEMATOCRIT 36.9 % (36.0-47.0); HEMOGLOBIN 12.1 g/dL (12.0-15.5); HGB HCT DIFFERENCE -0.6; MEAN CORPUSCULAR HGB CONC 32.8 g/dL (32.0-36.0); MEAN CORPUSCULAR VOLUME 82 fl (80-97); MONOCYTES % (AUTO) 6.9 % (3-13); RED BLOOD COUNT 4.48 10^6/uL (3.72-5.28); RED CELL DISTRIBUTION WIDTH 14.3 % (11.5-14.0); SEGMENTED NEUTROPHILS % (AUTO) 57.3 % (42-78); WHITE BLOOD COUNT 7.6 10^3/uL (4.0-10.5)
[2016-04-28 20:27] LABS: ALANINE AMINOTRANSFERASE 47 U/L (9-52); ALBUMIN 4.5 g/dL (3.5-5.0); ALKALINE PHOSPHATASE 84 U/L (38-126); ANION GAP 14 (5-19); ASPARTATE AMINO TRANSFERASE 32 U/L (14-36); BILIRUBIN,TOTAL 0.4 mg/dL (0.2-1.3); BLOOD UREA NITROGEN 14 mg/dL (7-20); CALCIUM 9.8 mg/dL (8.4-10.2); CARBON DIOXIDE 25 mmol/L (22-30); CHLORIDE 103 mmol/L (98-107); CREATINE KINASE 127 U/L (30-135); CREATININE RESULT 0.76 mg/dL (0.52-1.25); GLUCOSE 88 mg/dL (75-110); POTASSIUM 3.3 mmol/L (3.6-5.0); SODIUM 141.7 mmol/L (137-145); TOTAL PROTEIN 7.3 g/dL (6.3-8.2)
[2016-04-28 20:39] LABS: CREATINE KINASE MB 1.05 ng/mL (<4.55)
[2016-04-28 20:40] LABS: TROPONIN I < 0.012 ng/mL
[2016-04-28] MEDS ORDERED: POTASSIUM CHLORIDE 10 MEQ TABLET.SA PO ONE (20:41)
[2016-04-28] MEDS ORDERED: HYDROCODONE/ACETAMINOPHEN 5-325 MG 6 TAB/DSPK PO PRN (20:41)
[2016-04-28 21:58] VITALS: BP 145/101
== END 2016-04-28 21:58 | disposition home or self-care (01) ==
LOC: ER 16:25
DX: M79.632 Pain in left forearm (principal); M25.512 Pain in left shoulder; R07.9 Chest pain, unspecified; E87.6 Hypokalemia; I10 Essential (primary) hypertension; Z88.5 Allergy status to narcotic agent; Z86.73 Personal history of transient ischemic attack (TIA), and cerebral infarction without residual deficits
CPT/HCPCS: 36415; 71010; 80053; 82550; 82553; 84484; 85025; 93005; 93010; 99285

== ENCOUNTER 2016-05-24 21:38 | Observation (INO) | payer OTHER ==
[2016-05-24] MEDS ORDERED: ASPIRIN 81 MG TABLET, CHEWABLE PO ONE (21:58)
--- NOTE | 2016-05-24 22:03 | ER Document Report ---
ED Cardiac - General Stated Complaint: DIZZINESS, LEFT SHOULDER PAIN Time seen by provider: 21:50 Notes: Patient is a 50-year-old female that comes emergency department for chief complaint of discomfort in the center of her chest with a sensation of lightheadedness and nausea which happened while she was at [facility] just prior to arrival. Patient comes by EMS. Patient denies that she is not having pain currently, she states the pain seemed worse when she took a deep breath, however she denies shortness of breath. She states she still feels lightheaded. She states she has aches in the back of her left shoulder and in her forearm, states this is been going on for a while and is not new. Patient states she is treated for high blood pressure, has a history of high cholesterol , has had a stress test in the past, has been told that she has a low EF of 35% . Unsure if she has had a heart attack or not. She denies smoking. TRAVEL OUTSIDE OF THE [place] IN LAST 30 DAYS: No - Related Data Allergies/Adverse Reactions: codeine [Codeine] Allergy (Severe, Verified 04/28/16 16:50) nausea,dizziness Past Medical History - General Information source: Patient, Relative - Daughter at bedside, helped some with interpretation - Social History Smoking Status: Never Smoker Frequency of alcohol use: None Drug Abuse: None Lives with: Family Family History: Hypertension - Past Medical History Cardiac Medical History: Reports: Hx Hypercholesterolemia, Hx Hypertension Denies: Hx Coronary Artery Disease, Hx Heart Attack Pulmonary Medical History: Denies: Hx Asthma, Hx Bronchitis, Hx COPD, Hx Pneumonia Neurological Medical History: Reports: Hx Cerebrovascular Accident, Hx Migraine. Denies: Hx Seizures Renal/ Medical History: Denies: Hx Peritoneal Dialysis GI Medical History: Reports: Hx Gastroesophageal Reflux Disease Musculoskeltal Medical History: Denies Hx Arthritis Psychiatric Medical History: Reports: Hx Depression Past Surgical History: Reports: Hx Orthopedic Surgery - right carpal tunnel surgery 2010 - Immunizations Immunizations up to date: Yes Hx Diphtheria, Pertussis, Tetanus Vaccination: Yes Review of Systems - Review of Systems Constitutional: No symptoms reported EENT: No symptoms reported Cardiovascular: See HPI Respiratory: No symptoms reported Gastrointestinal: No symptoms reported Genitourinary: No symptoms reported Female Genitourinary: No symptoms reported Musculoskeletal: See HPI Skin: No symptoms reported Hematologic/Lymphatic: No symptoms reported Neurological/Psychological: No symptoms reported Physical Exam - Vital signs Vitals: Pulse Ox 100 05/24/16 21:58 Interpretation: Normal - General General appearance: Appears well, Alert In distress: None - HEENT Head: Normocephalic, Atraumatic Eyes: Normal Conjunctiva: Normal Extraocular movements intact: Yes Eyelashes: Normal Pupils: PERRL Sinus: Normal Nasal: Normal Mouth/Lips: Normal Mucous membranes: Normal Pharynx: Normal Neck: Normal - Respiratory Respiratory status: No respiratory distress Chest status: Nontender. No: Tender Breath sounds: Normal. No: Decreased air movement, Wheezing Chest palpation: Normal - Cardiovascular Rhythm: Regular. No: Tachycardia Heart sounds: Normal auscultation, S1 appreciated, S2 appreciated Murmur: No - Abdominal Inspection: Normal Distension: No distension Bowel sounds: Normal Tenderness: Nontender. No: Tender, Guarding Organomegaly: No organomegaly - Back Back: Normal, Nontender - Extremities General upper extremity: Other - Patient complains with palpation of the left posterior shoulder extending to the left trapezius muscle, range of motion is intact, normal distal neurovascular exam, no signs of injury or swelling, no abnormal erythema or ecchymosis. General lower extremity: Normal inspection, Nontender, Normal color, Normal ROM , Normal temperature, Normal weight bearing. No: Christopher's sign - Neurological Neuro grossly intact: Yes Cognition: Normal Orientation: AAOx4 Ritesh Coma Scale Eye Opening: Spontaneous Ritesh Coma Scale Verbal: Oriented Ritesh Coma Scale Motor: Obeys Commands [place] Coma Scale Total: 15 Speech: Normal Motor strength normal: LUE, RUE, LLE, RLE Sensory: Normal - Psychological Associated symptoms: Normal affect, Normal mood - Skin Skin Temperature: Warm Skin Moisture: Dry Skin Color: Normal Course - Re-evaluation Re-evalutation: EKG shows sinus rhythm, no T-wave inversions in consecutive leads or ST segment changes. There is a new inverted T waves in lead III. Left axis deviation. Patient in no distress, alert and well appearing. On reevaluation after aspirin patient is denying any discomfort in her chest, she still states her left posterior shoulder hurts with movement sometimes. No current complaints otherwise. Well-appearing. Chest x-ray unremarkable, LFTs very slightly elevated with ALT greater than AST , nontender abdomen. CBC, chemistry generally unremarkable, 2 sets of negative cardiac enzymes. Discussed patient with Dr. Esparza. Discussed patient with Dr. Estevez, internal medicine, recommends consultation with Dr. Pike because of recent admission for telemetry observation and stress testing. I called and spoke with Dr. Pike, discussed patient's presentation, history, workup, previous workup. Asked for recommendation. He is for telemetry observation. Discussed with patient, she is in full agreement with this plan. - Vital Signs Vital signs: Temp Pulse Resp BP Pulse Ox 15 106/72 96 05/25/16 05:01 05/25/16 05:01 05/25/16 05:01 - Laboratory Result Diagrams: 05/24/16 22:30 05/24/16 22:30 Laboratory results interpreted by me: 05/24/16 05/24/16 22:30 22:30 RDW 14.1 H Potassium 3.4 L AST 43 H ALT 65 H Discharge - Discharge Clinical Impression: Episode of dizziness Chest pain Qualifiers: Chest pain type: unspecified Qualified Code(s): R07.9 - Chest pain, unspecified Condition: Stable Disposition: ADMITTED OBSERVATION Admitting Provider: Hospitalist Unit Admitted: Telemetry
[2016-05-24 22:39] LABS: ABSOLUTE EOSINOPHILS # (AUTO) 0.2 10^3/uL (0.0-0.6); ABSOLUTE LYMPHOCYTES (AUTO) 2.6 10^3/uL (0.5-4.7); ABSOLUTE MONOCYTES (AUTO) 0.5 10^3/uL (0.1-1.4); ABSOLUTE NEUT (AUTO) 4.4 10^3/uL (1.7-8.2); BASOPHILS % (AUTO) 0.4 % (0-2); EOSINOPHILS % (AUTO) 2.6 % (0-6); HEMATOCRIT 37.6 % (36.0-47.0); HEMOGLOBIN 12.5 g/dL (12.0-15.5); HGB HCT DIFFERENCE -0.1; LYMPHOCYTES % (AUTO) 33.3 % (13-45); MEAN CORPUSCULAR HEMOGLOBIN 27.3 pg (27.0-33.4); MEAN CORPUSCULAR HGB CONC 33.3 g/dL (32.0-36.0); MEAN CORPUSCULAR VOLUME 82 fl (80-97); MONOCYTES % (AUTO) 6.6 % (3-13); RED BLOOD COUNT 4.58 10^6/uL (3.72-5.28); RED CELL DISTRIBUTION WIDTH 14.1 % (11.5-14.0); SEGMENTED NEUTROPHILS % (AUTO) 57.1 % (42-78); WHITE BLOOD COUNT 7.7 10^3/uL (4.0-10.5)
[2016-05-24 23:01] LABS: ALANINE AMINOTRANSFERASE 65 U/L (9-52); ALBUMIN 4.7 g/dL (3.5-5.0); ALKALINE PHOSPHATASE 91 U/L (38-126); ANION GAP 13 (5-19); ASPARTATE AMINO TRANSFERASE 43 U/L (14-36); BILIRUBIN,DIRECT 0.2 mg/dL (0.0-0.4); BILIRUBIN,TOTAL 0.6 mg/dL (0.2-1.3); BLOOD UREA NITROGEN 16 mg/dL (7-20); CALCIUM 10.2 mg/dL (8.4-10.2); CARBON DIOXIDE 29 mmol/L (22-30); CHLORIDE 103 mmol/L (98-107); CREATINE KINASE 123 U/L (30-135); GLUCOSE 109 mg/dL (75-110); POTASSIUM 3.4 mmol/L (3.6-5.0); SODIUM 144.5 mmol/L (137-145); TOTAL PROTEIN 7.8 g/dL (6.3-8.2)
[2016-05-24 23:13] LABS: CREATINE KINASE MB 0.95 ng/mL (<4.55)
[2016-05-24 23:16] LABS: TROPONIN I < 0.012 ng/mL
[2016-05-25] MEDS ORDERED: POTASSIUM CHLORIDE 10 MEQ TABLET.SA PO ONE (01:13)
[2016-05-25] MEDS ORDERED: ACETAMINOPHEN 325 MG TABLET PO PRN (06:14)
[2016-05-25] MEDS ORDERED: LANSOPRAZOLE 30 MG TAB.RAP.DR PO SCH (07:00)
--- NOTE | 2016-05-25 08:10 | EKG REPORT ---
SEVERITY:- ABNORMAL ECG - SINUS RHYTHM LEFT VENTRICULAR HYPERTROPHY : Confirmed by: Ruddy Wolfe MD 25-May-2016 08:10:02
[2016-05-25 08:16] LABS: CHOLESTEROL 199.88 mg/dL (0-200); Direct HDL 52 mg/dL (>40); TRIGLYCERIDES 129 mg/dL (<150)
[2016-05-25 08:27] LABS: DIRECT LDL 99 mg/dL (<100)
--- NOTE | 2016-05-25 08:29 | PDOC H&P ---
History of Present Illness Admission Date/PCP: 05/25/16 04:28 Patient complains of: chest pain History of Present Illness: JAKOB BUSTOS is a 50 year old obese female with underlying hypertension, anxiety, hyperlipidemia and arthritis who presents to the emergency room for evaluation of above complaint. While she was at a local fast food restaurant, she developed substernal pressure -like chest discomfort that worsened when she took a deep breath. However, no shortness of breath. Mild associated lightheadedness and nausea, but no vomiting. Pain gradually resolved, and has not recurred. She's had this pain before. Was hospitalized on our service the through March 09 of this year with final diagnoses including chest pain anxiety dyslipidemia and hypertension. Cardiolite stress test was performed revealing no scintigraphic evidence of myocardial ischemia or evidence of myocardial infarction or scar. Aggressive risk factor modification was recommended, along with treatment of underlying comorbidities. Report is noted. Denies previous myocardial infarction. No history of pulmonary embolus or DVT. No recent long trip with prolonged inactivity, or unusual lower extremity swelling or tenderness. Currently resting quietly, chest pain-free. Patient has been discussed with emergency room nurse practitioner who evaluated the patient. Nurse practitioner did speak with Dr. Pike, electronic science teacher booth usher , who felt patient could be safely managed at our institution.. Laboratory results are listed in [facility] and are reviewed. X-ray summary results are listed below, with full report(s) reviewed. . EKG reviewed. And compared to a tracing from the 24th of last month Social history/personal habits: . Has children. 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 No use of tobacco alcohol or illicit drugs. Allergies/adverse reactions are listed in [facility] and are reviewed. Home medications are to be reconciled by deliverer pharmacy in [facility]. Home medications initially autopopulated into [facility] may not accurately reflect patient's true medications, dosages, and/or frequencies. REVIEW OF SYSTEMS: Constitutional: No fever or chills. Eyes: Wears glasses. ENT: No swallowing problems or complaints. Occasional mild ear pain, but no hearing loss per se. Pulmonary: No current complaints. Cardiovascular: See history and present illness. Gastrointestinal: See history and present illness. Skin: No current complaints, including rashes. Hematologic: Easy bruising. Musculoskeletal: Joint pain from arthritis. Psychiatric: Mild Anxiety Endocrine: No current complaints, including polyuria. Genitourinary: No current complaints, including dysuria. PHYSICAL EXAMINATION: 5 feet 1 inches tall. 81.2 kg. BMI 33.8 kg/m. Blood pressure 106/72. Pulse 91 and regular. 100% saturation on room air. Respirations are 19 and unlabored. Temperature 98.2. Obese otherwise well-developed late middle-aged female. Pleasant awake alert and cooperative. No obvious distress other than perhaps mildly anxious. Understands Danish, including medical terminology, well. Female emergency room warts medical secretary teacher Michelle is present. Skin is warm and dry. No grossly obvious evidence of rash in areas of skin examined. No subcutaneous nodules palpated. ENT: Hearing grossly normal to normal conversation. Tongue midline on protrusion pink and slightly tacky. Eyes: No scleral icterus. Pupils equal and reactive to light at 4 mm. Bowring conjunctivae. Neck is supple and nontender to gentle active range of motion and palpation. Midline trachea. No palpable thyroid nodule mass enlargement or tenderness. Lymphatic: No palpable cervical or clavicular nodes. Neck and lymphatic exams limited by patient body habitus. Psychiatric: Reasonable insight into acute and chronic medical issues. Oriented to time location and why here. Lungs: Auscultation reveals clear and equal breath sounds bilaterally. No use of accessory respiratory muscles. Cardiovascular: Heart regular rate and rhythm, without gallop murmur or rub. No carotid or abdominal aortic bruits. No ankle or pedal edema. Faintly palpable dorsalis pedis pulses. Abdomen: soft, somewhat obese, nontender with positive bowel sounds. Unable to adequately evaluate abdomen for masses or organomegaly due to body habitus. Epigastric compression does not reproduce her previously noted chest discomfort , but sternal compression does. Extremities: Feet are warm and dry. No calf tenderness to compression. No grossly obvious visual evidence of calf swelling. Gentle manipulation of lower extremities fails to reveal any obvious evidence of injury or instability to knees hips or ankles. Neurologic: Moves upper extremities grossly normally. Patellar reflexes absent. Absent Babinski. Light touch is intact at feet. Dorsiflexion and plantarflexion of feet 5 / 5 and symmetric. Past Medical History Cardiac Medical History: Reports: Hyperlipidema, Hypertension Denies: Congestive Heart Failure, Coronary Artery Disease, DVT, Myocardial Infarction, Pulmonary Embolism Pulmonary Medical History: Denies: Asthma, Bronchitis, Chronic Obstructive Pulmonary Disease (COPD), Pneumonia EENT Medical History: Reports: Eyes - Glasses, Ears - Mild occasional ear pain, without hearing loss. Denies: Throat Neurological Medical History: Reports: Ischemic CVA, Migraine Denies: Hemorrhagic CVA, Seizures Endocrine Medical History: Denies: Diabetes Mellitus Type 1, Diabetes Mellitus Type 2, Hyperthyroidism, Hypothyroidism Renal/ Medical History: Reports: None GI Medical History: Reports: Gastroesophageal Reflux Disease Denies: Cirrhosis, Hepatitis, Peptic Ulcer Disease Musculoskeltal Medical History: Reports: Arthritis - Primarily involving her right knee Skin Medical History: Reports: None Psychiatric Medical History: Reports: General Anxiety Disorder Denies: Alcohol Dependency, Depression, Substance Abuse, Tobacco Dependency Hematology: Reports: None Denies: Anemia Infectious Medical History: Denies: Hepatitis B, Hepatitis C Past Surgical History Past Surgical History: Reports: Orthopedic Surgery - right carpal tunnel surgery 2010; right knee surgery. Social History Information Source: Patient, Emergency Med Personnel, [facility] Records Lives with: Spouse/Significant other Smoking Status: Never Smoker Frequency of Alcohol Use: None Hx Recreational Drug Use: No Drugs: None Hx Prescription Drug Abuse: No - Advance Directive Resuscitation Status: Full Code Surrogate healthcare decision maker:: Family History Family History: DM, Hypertension, Other - Autistic son Parental Family History Reviewed: Yes Children Family History Reviewed: Yes Sibling(s) Family History Reviewed.: Yes Medication/Allergy Home Medications: Atorvastatin Calcium 10 mg PO DAILY 03/09/16 Buspirone HCl [Buspar 5 mg Tablet] 5 mg PO BID 03/09/16 Lisinopril/Hydrochlorothiazide [Lisinopril-Hctz 20-12.5 mg Tab] 10 mg PO BID 07/19 Naproxen 500 mg PO BID PRN #60 tablet 03/09/16 Methocarbamol [Robaxin 750 mg Tablet] 750 mg PO Q6 #20 tablet 04/28/16 Allergies/Adverse Reactions: codeine [Codeine] Allergy (Severe, Verified 04/28/16 16:50) nausea,dizziness Physical Exam Vital Signs: Temp Pulse Resp BP Pulse Ox 98.2 F 15 106/72 96 05/25/16 06:17 05/25/16 05:01 05/25/16 05:01 05/25/16 05:01 Intake & Output 05/24/16 05/25/16 05/26/16 00:59 00:59 00:59 Weight 81.193 kg Results Impressions: Chest X-Ray 05/24/16 21:58 IMPRESSION: NO ACUTE RADIOGRAPHIC FINDING IN THE CHEST. Assessment & Plan - Diagnosis (1) Hypokalemia Is this a current diagnosis for this admission?: YesPlan: Treated by emergency room nurse practitioner. (2) Precordial chest pain Is this a current diagnosis for this admission?: YesPlan: Likely musculoskeletal in etiology, but given patient's risk factors, Patient will be placed in observation bed under chest pain protocol. Patient understands to notify staff should chest pain recur. Serial troponin's . Repeat EKG. lipid panel. Cardiology consult with Dr. Pike. I have strongly encouraged patient not to get out of bed without notifying staff , to avoid a fall with injury. Knee high SCDs for DVT prophylaxis. Along with subcutaneous Lovenox . Impression and plans were discussed with patient, who concurs. Time spent in evaluation and management of patient: 57 minutes. (4) Dyslipidemia Is this a current diagnosis for this admission?: YesPlan: Lipid panel. Resume home medications as appropriate once these have been determined and reviewed. (5) Essential hypertension Is this a current diagnosis for this admission?: YesPlan: Resume home medications as appropriate once these have been determined and reviewed.
[2016-05-25 09:03] VITALS: BP 116/79
[2016-05-25] MEDS ORDERED: ASPIRIN 81 MG TABLET, ENT COATED PO SCH (10:00)
[2016-05-25] MEDS ORDERED: ENOXAPARIN SODIUM INJ 40 MG/0.4 ML DISP.SYRIN SUBCUT SCH (10:00)
--- NOTE | 2016-05-25 13:51 | PDOC DISCHARGE SUMMARY ---
General - Admit/Disc Date/PCP Admission Date/Primary Care Provider: 05/25/16 06:09 TAYLOR WALLACE MD Discharge Date: 05/25/16 - Discharge Diagnosis (1) Essential hypertension Is this a current diagnosis for this admission?: YesSummary: The patient reports her symptoms are worse in the afternoon and her blood pressure is always the most elevated at that time. Her PCP recently reduced her antihypertensive medication in half and move the administration time to 1500 hrs but this is had no effect on her afternoon symptoms. Because of the mild hypokalemia on presentation and the nature of the patient's work, I elected to stop the diuretic portion of her regimen and substituted a calcium channel beau instead. Furthermore we split the dose in 2 morning and afternoon taking the amlodipine in the afternoon and the lisinopril in the morning hoping to achieve a more steady state with her blood pressures through the day and thereby reducing her symptoms. She is to follow-up with her PCP next week and report a blood pressure diary for further dose adjustment. (2) Episode of dizziness Is this a current diagnosis for this admission?: YesSummary: Seems to correlate with her afternoon hypertensive episodes. See the above discussion. (3) Hypokalemia Is this a current diagnosis for this admission?: YesSummary: I suspect related to diuretic therapy. She was given oral replacement. She is to DC the diuretic regimen and defer to her PCP for further monitoring and replacement. (4) Precordial chest pain Is this a current diagnosis for this admission?: YesSummary: She has right costochondral tenderness that is reproducible to palpation I do not think is related to her presentation at all. She reports coming to the hospital because of the dizziness and high blood pressures and only responded yes when directly questioned by ER physician regarding chest pain. She thinks she just pulled a muscle. She spent enough time in the emergency department to have 3 negative cardiac enzymes. - Additional Information Resuscitation Status: Full Code Discharge Diet: Cardiac Discharge Activity: Activity As Tolerated Home Medications: Atorvastatin Calcium [Lipitor 10 mg Tablet] 10 mg PO DAILY 05/25/16 Buspirone HCl [Buspar 5 mg Tablet] 5 mg PO BIDP PRN 05/25/16 Lisinopril/Hydrochlorothiazide [Lisinopril-Hctz 10-12.5 mg Tab] 1 tab PO DAILY 05/25/16 Methocarbamol 750 mg PO Q6HP PRN 05/25/16 History of Present Illness Patient complains of: Dizziness History of Present Illness: JAKOB BUSTOS is a 50 year old female with underlying hypertension, anxiety, hyperlipidemia and arthritis who presents to the emergency room for evaluation of above complaint. While she was at a local fast food restaurant, she developed substernal pressure -like chest discomfort that worsened when she took a deep breath. However, no shortness of breath. Mild associated lightheadedness and nausea, but no vomiting. Pain gradually resolved, and has not recurred. Hospital Course Hospital Course: She's had this pain before. Was hospitalized on our service the through March 09 of this year with final diagnoses including chest pain anxiety dyslipidemia and hypertension. Cardiolite stress test was performed revealing no scintigraphic evidence of myocardial ischemia or evidence of myocardial infarction or scar. Aggressive risk factor modification was recommended, along with treatment of underlying comorbidities. Report is noted. Denies previous myocardial infarction. No history of pulmonary embolus or DVT. No recent long trip with prolonged inactivity, or unusual lower extremity swelling or tenderness. Currently resting quietly, chest pain-free. She ruled out for acute cardiac ischemia with negative EKGs 2 and 3 sets of negative cardiac enzymes. Her primary complaint at presentation was dizziness and she reports episodic elevations of her blood pressure particularly in the afternoons despite recent changes to her medical regimen by her PCP. Please see the above discussion for full details. Ultimately we elected to change her antihypertensive regimen to split dosing with CATRACHITO inhibitor and calcium channel beau and discontinuation of the diuretic portion for the reasons noted above. She is in agreement with this treatment plan and is hopeful this will help resolve her symptoms. She reports recent neurologic evaluation by specialist including MRI and found no other explanation for her dizziness. I see no clear indication to continue further pursuit of her dizziness at this time she has had no recurrence during her hospitalization here and is already under investigation by her primary care provider and subspecialists. She is in agreement. The chest discomfort reported to the ER physician while taking a review of systems is completely reproducible at the bedside and I do not believe correlates with her presenting symptoms. With the above plan in place, she is stable for discharge home. She expresses no concerns about going home at this time. She is in agreement with treatment plan and willing to follow medical directions, ADDRESSED and answered to her satisfaction. She is to return to the emergency department for any escalating symptoms. He is to follow-up with her primary care provider in one week. Physical Exam Vital Signs: Temp Pulse Resp BP Pulse Ox 98.0 F 18 116/79 100 05/25/16 09:01 05/25/16 09:01 05/25/16 09:01 05/25/16 09:01 Intake & Output 05/24/16 05/25/16 05/26/16 06:59 06:59 06:59 Weight 81.193 kg EXAM GENERAL: NAD; well developed, well nourished; mild obese; alert and oriented to person, place, time, situation HEENT: normocephalic, atraumatic; no conjunctival injection, no scleral icterus ; oral mucosa moist; RESPIRATORY: no accessory muscle use, no increased WOB, good air entry bilaterally; no wheezes, rales, rhonchi; no inspiratory crackles CARDIO: no JVD; RRR; no systolic murmur; no tachycardia; chest wall tender to palp Rt lateral costo-chondral margins GI: soft; nondistended; normal bowel sounds; no hepato spleno megaly; no rebound, rigidity, guarding VASCULAR: no carotid bruit; no abdominal bruit; no pallor; 2+ radial, DP pulse ; normal capillary refill EXTREMITIES: no calf tender; no palpable cords in calf; no clubbing, cyanosis , pedal edema PSYCH: normal affect, normal mood SKIN: warm; moist; no petechiae; no telengectasias; no jaundice; no rash Results Laboratory Results: 05/25/16 07:45 Triglycerides 129 Cholesterol 199.88 LDL Cholesterol Direct 99 VLDL Cholesterol 26.0 HDL Cholesterol 52 05/25/16 07:45 Troponin I < 0.012 Impressions: Chest X-Ray 05/24/16 21:58 IMPRESSION: NO ACUTE RADIOGRAPHIC FINDING IN THE CHEST. Qualifiers PATEINT BEING DISCHARGED WITH ANY OF THE FOLLOWING DIAGNOSIS?: No VTE patient discharged on overlapping Therapy?: No Reason(s) for not prescribing Overlap Therapy:: Not indicated
== END 2016-05-25 09:30 | disposition home or self-care (01) ==
LOC: ER 21:38 → EH 05-25 04:28 → UNDOADMOB 05-25 04:28 → EH 05-25 06:09
PROVIDERS: ADMIT Family Medicine; ATTEND Family Medicine
DX: I10 Essential (primary) hypertension (principal); R07.2 Precordial pain; R42 Dizziness and giddiness; E87.6 Hypokalemia; E78.5 Hyperlipidemia, unspecified; M19.90 Unspecified osteoarthritis, unspecified site
CPT/HCPCS: 36415; 71010; 80053; 80061; 82550; 82553; 83735; 84484; 85025; 93005; 93010; 99285; G0378

== ENCOUNTER 2016-09-08 22:01 | Emergency (ER) | payer OTHER ==
[2016-09-08] MEDS ORDERED: KETOROLAC TROMETHAMINE INJ/PF 30 MG/1 ML SDV IV ONE (22:27)
[2016-09-08] MEDS ORDERED: ONDANSETRON HCL INJ/PF 4 MG/2 ML SDV IV ONE (22:27)
[2016-09-08 23:16] LABS: APPEARANCE,URINE SLIGHTLY-CLOUDY; BILIRUBIN,URINE NEGATIVE (NEGATIVE); GLUCOSE, URINE NEGATIVE (NEGATIVE); KETONES,URINE NEGATIVE (NEGATIVE); LEUKOCYTE ESTERASE,URINE TRACE (NEGATIVE); NITRITE,URINE NEGATIVE (NEGATIVE); PROTEIN,URINE NEGATIVE (NEGATIVE); URINE SPECIFIC GRAVITY 1.019; UROBILINOGEN,URINE NEGATIVE mg/dL (<2.0)
[2016-09-08 23:29] LABS: ABSOLUTE EOSINOPHILS # (AUTO) 0.2 10^3/uL (0.0-0.6); ABSOLUTE LYMPHOCYTES (AUTO) 3.2 10^3/uL (0.5-4.7); ABSOLUTE MONOCYTES (AUTO) 0.5 10^3/uL (0.1-1.4); ABSOLUTE NEUT (AUTO) 3.8 10^3/uL (1.7-8.2); BASOPHILS % (AUTO) 0.5 % (0-2); EOSINOPHILS % (AUTO) 2.5 % (0-6); HEMATOCRIT 36.7 % (36.0-47.0); HEMOGLOBIN 12.1 g/dL (12.0-15.5); HGB HCT DIFFERENCE -0.4; LYMPHOCYTES % (AUTO) 41.3 % (13-45); MEAN CORPUSCULAR HEMOGLOBIN 27.2 pg (27.0-33.4); MEAN CORPUSCULAR HGB CONC 32.9 g/dL (32.0-36.0); MEAN CORPUSCULAR VOLUME 83 fl (80-97); MONOCYTES % (AUTO) 6.7 % (3-13); RED BLOOD COUNT 4.43 10^6/uL (3.72-5.28); RED CELL DISTRIBUTION WIDTH 13.7 % (11.5-14.0); WHITE BLOOD COUNT 7.7 10^3/uL (4.0-10.5)
[2016-09-09 00:01] LABS: ALANINE AMINOTRANSFERASE 47 U/L (9-52); ALBUMIN 4.2 g/dL (3.5-5.0); ALKALINE PHOSPHATASE 76 U/L (38-126); ANION GAP 12 (5-19); ASPARTATE AMINO TRANSFERASE 28 U/L (14-36); BILIRUBIN,DIRECT 0.3 mg/dL (0.0-0.4); BILIRUBIN,TOTAL 0.4 mg/dL (0.2-1.3); BLOOD UREA NITROGEN 19 mg/dL (7-20); CALCIUM 9.5 mg/dL (8.4-10.2); CARBON DIOXIDE 26 mmol/L (22-30); CHLORIDE 105 mmol/L (98-107); CREATININE RESULT 0.75 mg/dL (0.52-1.25); GLUCOSE 91 mg/dL (75-110); LIPASE 48.8 U/L (23-300); POTASSIUM 3.6 mmol/L (3.6-5.0)
[2016-09-09] MEDS ORDERED: FAMOTIDINE 20 MG TABLET PO ONE (00:14)
[2016-09-09] MEDS ORDERED: MAG HYDROX/AL HYDROX/SIMETH SUSP 30 ML UDCUP PO ONE (00:14)
[2016-09-09] MEDS ORDERED: LIDOCAINE 2% VISCOUS SOLN 20 ML UDCUP PO ONE (00:14)
[2016-09-09] MEDS ORDERED: METOCLOPRAMIDE HCL ORAL SOLN 10 MG/10 ML UDCUP PO ONE (00:14)
--- NOTE | 2016-09-09 00:14 | ER Document Report ---
ED General - General Chief Complaint: Flank Pain Stated Complaint: LEFT FLANK SIDE Time Seen by Provider: 09/08/16 22:57 Notes: Patient is a 51-year-old female with past medical history of cardiomyopathy, hypertension, hyperlipidemia who presents with 3-4 days of intermittent left flank pain as well as epigastric abdominal discomfort. Describes the pain as a intermittent, aching, burning pain. States her symptoms are worsened by eating and do resolve spontaneously. Denies a history of similar symptoms in the past. States she was seen by her primary care doctor who encouraged her to take ibuprofen or similar [id number] pain medication for this pain. She has not had any associated vomiting or diarrhea. Denies any melena or hematochezia. Adamantly denies any chest pain or shortness of breath. TRAVEL OUTSIDE OF THE [place] IN LAST 30 DAYS: No - Related Data Allergies/Adverse Reactions: codeine [Codeine] Allergy (Severe, Verified 04/28/16 16:50) nausea,dizziness Past Medical History - General Information source: Patient - Social History Smoking Status: Never Smoker Frequency of alcohol use: None Drug Abuse: None Lives with: Spouse/Significant other Family History: DM, Hypertension, Other - Autistic son Patient has suicidal ideation: No Patient has homicidal ideation: No - Past Medical History Cardiac Medical History: Reports: Hx Hypercholesterolemia, Hx Hypertension Denies: Hx Congestive Heart Failure, Hx Coronary Artery Disease, Hx DVT, Hx Heart Attack, Hx Pulmonary Embolism Pulmonary Medical History: Denies: Hx Asthma, Hx Bronchitis, Hx COPD, Hx Pneumonia Neurological Medical History: Reports: Hx Cerebrovascular Accident, Hx Migraine. Denies: Hx Seizures Endocrine Medical History: Denies: Hx Diabetes Mellitus Type 1, Hx Diabetes Mellitus Type 2, Hx Hyperthyroidism, Hx Hypothyroidism Renal/ Medical History: Denies: Hx Peritoneal Dialysis GI Medical History: Reports: Hx Gastroesophageal Reflux Disease. Denies: Hx Cirrhosis, Hx Hepatitis Musculoskeltal Medical History: Reports Hx Arthritis - Primarily involving her right knee Psychiatric Medical History: Denies: Hx Depression Infectious Medical History: Denies: Hx Hepatitis Past Surgical History: Reports: Hx Orthopedic Surgery - right carpal tunnel surgery 2010; right knee surgery. - Immunizations Immunizations up to date: Yes Hx Diphtheria, Pertussis, Tetanus Vaccination: Yes Review of Systems - Review of Systems Notes: Constitutional: Negative for fever. HENT: Negative for sore throat. Eyes: Negative for visual changes. Cardiovascular: Negative for chest pain. Respiratory: Negative for shortness of breath. Gastrointestinal: Positive for left flank pain Genitourinary: Negative for dysuria. Musculoskeletal: Negative for back pain. Skin: Negative for rash. Neurological: Negative for headaches, weakness or numbness. 10 point ROS negative except as marked above and in HPI. Physical Exam - Vital signs Interpretation: Normal Notes: PHYSICAL EXAMINATION: GENERAL: Well-appearing, well-nourished and in no acute distress. HEAD: Atraumatic, normocephalic. EYES: Pupils equal round and reactive to light, extraocular movements intact, sclera anicteric, conjunctiva are normal. ENT: nares patent, oropharynx clear without exudates. Moist mucous membranes. NECK: Normal range of motion, supple without lymphadenopathy LUNGS: Breath sounds clear to auscultation bilaterally and equal. No wheezes rales or rhonchi. HEART: Regular rate and rhythm without murmurs ABDOMEN: Soft, nontender, normoactive bowel sounds. No guarding, no rebound. No masses appreciated. EXTREMITIES: Normal range of motion, no pitting or edema. No cyanosis. NEUROLOGICAL: No focal neurological deficits. Moves all extremities spontaneously and on command. PSYCH: Normal mood, normal affect. SKIN: Warm, Dry, normal turgor, no rashes or lesions noted. Course - Re-evaluation Re-evalutation: 09/09/16 00:12 Patient presents with intermittent left flank pain, epigastric abdominal pain with burping and burning sensation in her throat when she eats for the past 1 week. Notes that the symptoms are episodic and correlate with when she eats. On examination she has no focal abdominal tenderness whatsoever to suggest an acute biliary pathology, acute pancreatitis, appendicitis, or acute ovarian pathology. She has no CVA tenderness and urinalysis is clear without evidence of pyelonephritis or cystitis. She denies any chest pain, shortness of breath, pleuritic pain or hemoptysis. Patient reports that her pain is typically only present after eating and feels like a burning, raw sensation in the affected areas. Based on her reassuring vitals, labs, physical examination I do not suspect an acute life-threatening pathology at this time. Will avoid CT imaging at this time as I believe that the risks of radiation at this time outweigh the benefit of imaging as I have a very low clinical suspicion for an acute intra-abdominal pathology at this time. At this time will discharge with return precautions and follow-up recommendations. Verbal discharge instructions given a the bedside and opportunity for questions given. Medication warnings reviewed. Patient is in agreement with this plan and has verbalized understanding of return precautions and the need for primary care follow-up in the next 24-72 hours. - Laboratory Result Diagrams: 09/08/16 23:20 09/08/16 23:20 Laboratory results interpreted by me: 09/08/16 22:50 Ur Leukocyte Esterase TRACE H Urine Ascorbic Acid 40 H Discharge - Discharge Clinical Impression: Left flank pain Condition: Good Disposition: HOME, SELF-CARE Additional Instructions: Your symptoms appear to be most consistent with stomach or upper intestinal irritation. Please begin taking famotidine 40 mg in the morning and 40 mg at night. This medicine can be purchased directly [id number]. You may also take medicine such as Pepto-Bismol or Tums to assist with your pain. Please return to emergency department immediately if you have worsening of your pain, shortness of breath, vomiting, become unable to exert yourself due to pain or difficulty breathing, you pass out, or have any pain that radiates into your arms, jaw, or back. Please also return if you have any additional symptoms that are concerning to you. Referrals: WILLEM VILLASEÑOR PA-C [Primary Care Provider] - Follow up as needed
== END 2016-09-09 00:54 | disposition home or self-care (01) ==
LOC: ER 22:01
DX: R10.13 Epigastric pain (principal); I10 Essential (primary) hypertension; E78.5 Hyperlipidemia, unspecified; Z88.6 Allergy status to analgesic agent
CPT/HCPCS: 99284; 96374; 96375; 36415; 83690; 85025; 80053; 81001; J1885; J2405

== ENCOUNTER 2016-09-25 09:28 | Day surgery (SDC) | payer OTHER ==
[~2016-09-25 09:28] MED LIST: PROPOFOL INJ 200 MG/20 ML VIAL IV ONE
[2016-09-25 11:54] VITALS: BP 143/97
--- NOTE | 2016-09-25 13:29 | Operative Report ---
Operative Report DATE OF SURGERY: 09/25/16 Operative Report: The risks, benefits and alternatives of the procedure including risks of bleeding, perforation requiring surgery are explained to the patient detail and informed consent was obtained. Patient was taken back to the endoscopy suite and placed in the left, lateral decubital position. Timeout was called. Propofol medications administered. An Olympus video scope was inserted into the patient's rectum. The scope was then gradually advanced all the way to the cecum. The cecum was identified by the usual anatomical landmarks including the ileocecal valve as well as the appendiceal office. Photodocumentation is obtained. Prep is good. There is somewhat of a redundant colon. The scope was then sequentially pulled back via the rest segments of the colon including the ascending colon, hepatic flexure, transverse colon, splenic flexure, descending colon and finding to the rectosigmoid portions of the colon. Retroflexion maneuver was performed. The risks benefits and alternatives of the procedure explained to the patient in detail and informed consent is obtained.A GIF Olympus video scope was inserted into the patient's mouth and hypopharynx ,the esophagus is identified intubated and insufflated, the scope was then advanced through the esophagus stomach and duodenum, retroflexion maneuver is done, the esophagus stomach and first and second portions of the duodenum examined PREOPERATIVE DIAGNOSIS: Colorectal cancer screening. Dysphagia. POSTOPERATIVE DIAGNOSIS: Mild right-sided inflammation status post biopsy. Internal hemorrhoids. Foreign body noted in the colon. It is identified as the label that is commonly found on fresh fruit. It is further documented and removed. Gastritis. Possible Schatzki's ring which is broken. Mucosal specimens obtained to rule out Helicobacter pylori and rule out Fairbanks's esophagus. OPERATION: Colonoscopy with biopsy. Colonoscopy with foreign body removal. EGD with biopsy SURGEON: ISAURO GRIMM ANESTHESIA: LMAC TISSUE REMOVED OR ALTERED: As described above. COMPLICATIONS: None. ESTIMATED BLOOD LOSS: None. INTRAOPERATIVE FINDINGS: As described above. PROCEDURE: Patient tolerated the procedure well. No immediate postprocedure complications are noted. Patient discharged in good condition. Discharge date 09/25/2016. Discharge diet: Regular. Discharge activity: Regular. 2-3 week follow-up to discuss findings. Patient is instructed to call the office or proceed to the emergency room should there be any further problems or questions. We will await pathology. 10 year surveillance colonoscopy.
== END 2016-09-25 11:55 | disposition home or self-care (01) ==
LOC: END 09:28
PROVIDERS: ATTEND Internal Medicine Gastroenterology
PROC: 0DB68ZX Excision of Stomach, Via Natural or Artificial Opening Endoscopic, Diagnostic (ICD-10-PCS; principal; 2016-09-25 12:00)
PROC: 0DB58ZX Excision of Esophagus, Via Natural or Artificial Opening Endoscopic, Diagnostic (ICD-10-PCS; 2016-09-25 12:00)
PROC: 0DBF8ZX Excision of Right Large Intestine, Via Natural or Artificial Opening Endoscopic, Diagnostic (ICD-10-PCS; 2016-09-25 12:00)
DX: Z12.11 Encounter for screening for malignant neoplasm of colon (principal); K52.9 Noninfective gastroenteritis and colitis, unspecified; T18.4XXA Foreign body in colon, initial encounter; X58.XXXA Exposure to other specified factors, initial encounter; K64.8 Other hemorrhoids; K29.50 Unspecified chronic gastritis without bleeding; B96.81 Helicobacter pylori [H. pylori] as the cause of diseases classified elsewhere; R13.10 Dysphagia, unspecified; I10 Essential (primary) hypertension; Z79.899 Other long term (current) drug therapy; I25.2 Old myocardial infarction; Z86.73 Personal history of transient ischemic attack (TIA), and cerebral infarction without residual deficits; K21.9 Gastro-esophageal reflux disease without esophagitis
CPT/HCPCS: 45379; 43239; 45380; 88342 ×2; 88305 ×2; J2704; 740

== ENCOUNTER → 2016-12-30 | Outpatient (CLI) | payer OTHER ==
[2016-12-30 09:35] LABS: ABSOLUTE EOSINOPHILS # (AUTO) 0.2 10^3/uL (0.0-0.6); ABSOLUTE LYMPHOCYTES (AUTO) 2.1 10^3/uL (0.5-4.7); ABSOLUTE MONOCYTES (AUTO) 0.3 10^3/uL (0.1-1.4); ABSOLUTE NEUT (AUTO) 3.2 10^3/uL (1.7-8.2); BASOPHILS % (AUTO) 0.6 % (0-2); EOSINOPHILS % (AUTO) 2.7 % (0-6); HEMATOCRIT 38.2 % (36.0-47.0); HEMOGLOBIN 12.9 g/dL (12.0-15.5); HGB HCT DIFFERENCE 0.5; LYMPHOCYTES % (AUTO) 35.9 % (13-45); MEAN CORPUSCULAR HEMOGLOBIN 27.8 pg (27.0-33.4); MEAN CORPUSCULAR HGB CONC 33.7 g/dL (32.0-36.0); MEAN CORPUSCULAR VOLUME 83 fl (80-97); MONOCYTES % (AUTO) 5.7 % (3-13); RED BLOOD COUNT 4.63 10^6/uL (3.72-5.28); RED CELL DISTRIBUTION WIDTH 14.2 % (11.5-14.0); SEGMENTED NEUTROPHILS % (AUTO) 55.1 % (42-78); WHITE BLOOD COUNT 5.8 10^3/uL (4.0-10.5)
[2016-12-30 09:52] LABS: ALANINE AMINOTRANSFERASE 57 U/L (9-52); ALBUMIN 4.6 g/dL (3.5-5.0); ALKALINE PHOSPHATASE 75 U/L (38-126); ANION GAP 13 (5-19); ASPARTATE AMINO TRANSFERASE 30 U/L (14-36); BILIRUBIN,DIRECT 0.4 mg/dL (0.0-0.4); BILIRUBIN,TOTAL 0.5 mg/dL (0.2-1.3); BLOOD UREA NITROGEN 13 mg/dL (7-20); CALCIUM 9.8 mg/dL (8.4-10.2); CARBON DIOXIDE 27 mmol/L (22-30); CHLORIDE 106 mmol/L (98-107); CHOLESTEROL 159.74 mg/dL (0-200); CREATININE RESULT 0.76 mg/dL (0.52-1.25); Direct HDL 57 mg/dL (>40); GLUCOSE 105 mg/dL (75-110); POTASSIUM 4.4 mmol/L (3.6-5.0); SODIUM 145.7 mmol/L (137-145); TOTAL PROTEIN 7.2 g/dL (6.3-8.2); TRIGLYCERIDES 81 mg/dL (<150)
[2016-12-30 10:03] LABS: DIRECT LDL 80 mg/dL (<100)
== END ==
LOC: OD 08:48
PROVIDERS: ATTEND Family Medicine Geriatric Medicine
DX: I10 Essential (primary) hypertension (principal); E78.5 Hyperlipidemia, unspecified; E66.9 Obesity, unspecified; R20.2 Paresthesia of skin; Z79.899 Other long term (current) drug therapy
CPT/HCPCS: 36415; 80053; 80061; 82306; 84443; 85025

== ENCOUNTER → 2017-01-15 | Outpatient (CLI) | payer OTHER ==
--- NOTE | 2017-01-15 12:31 | RADIOLOGY REPORT (SQ) ---
EXAM DESCRIPTION: SHOULDER LEFT 2 OR MORE VIEWS COMPLETED DATE/TIME: 01/15/2017 11:45 am REASON FOR STUDY: PAIN IN LEFT SHOULDER M54.2 CERVICALGIA M25.512 PAIN IN LEFT SHOULDER M25.551 P AIN IN RIGHT HIP COMPARISON: None. NUMBER OF VIEWS: Three views. TECHNIQUE: Internal rotation, external rotation, and Y view images acquired of the left shoulder. LIMITATIONS: None. FINDINGS: MINERALIZATION: Normal. BONES: No acute fracture or dislocation. No worrisome bone lesions. JOINTS: No dislocation. VISUALIZED LUNGS AND RIBS: No pneumothorax. No rib fracture. SOFT TISSUES: No radiopaque foreign body. OTHER: No other significant finding. IMPRESSION: NEGATIVE STUDY OF THE LEFT SHOULDER. NO RADIOGRAPHIC EVIDENCE OF ACUTE INJURY. TECHNICAL DOCUMENTATION: JOB ID: [id number] [employer]- All Rights Reserved
--- NOTE | 2017-01-15 12:31 | RADIOLOGY REPORT (SQ) ---
EXAM DESCRIPTION: C SP 4 OR 5 VIEWS COMPLETED DATE/TIME: 01/15/2017 11:45 am REASON FOR STUDY: CERVICALGIA M54.2 CERVICALGIA M25.512 PAIN IN LEFT SHOULDER M25.551 PAIN IN RIG HT HIP COMPARISON: None. NUMBER OF VIEWS: Five views. TECHNIQUE: AP, lateral, obliques and odontoid radiographic images acquired of the cervical spine. LIMITATIONS: None. FINDINGS: MINERALIZATION: Normal. ALIGNMENT: Anatomic. VERTEBRAE: Vertebral bodies of normal height. DISCS: No significant osteophytes or sclerosis. Disc height maintained. FORAMINA: No osteophytes or foraminal narrowing. LATERAL AND POSTERIOR ELEMENTS: Facets, lateral masses and spinous processes without significant find ings. HARDWARE: None in the spine. SOFT TISSUES: No masses or calcifications. Lung apices clear. OTHER: No other significant finding. IMPRESSION: NO SIGNIFICANT RADIOGRAPHIC FINDING IN THE CERVICAL SPINE. TECHNICAL DOCUMENTATION: JOB ID: [id number] [employer]- All Rights Reserved
--- NOTE | 2017-01-15 12:31 | RADIOLOGY REPORT (SQ) ---
EXAM DESCRIPTION: HIP RIGHT AP/LATERAL COMPLETED DATE/TIME: 01/15/2017 11:45 am REASON FOR STUDY: PAIN IN RIGHT HIP M54.2 CERVICALGIA M25.512 PAIN IN LEFT SHOULDER M25.551 PAIN IN RIGHT HIP COMPARISON: None. NUMBER OF VIEWS: Two views. TECHNIQUE: AP pelvis and additional frog-leg view of the right hip. LIMITATIONS: None. FINDINGS: MINERALIZATION: Normal. RIGHT HIP: No fracture or dislocation. No worrisome bone lesions. No contour deformity. No joint sp hailey narrowing. LEFT HIP: No fracture or dislocation. No worrisome bone lesions. PUBIS AND ISCHIUM: No fracture. PELVIS: No fracture. SACRUM: No fracture or dislocation. No worrisome bone lesions. LOWER LUMBAR SPINE: No fracture or dislocation. No worrisome bone lesions. No significant disc disea se. SOFT TISSUES: No findings. OTHER: No other significant finding. IMPRESSION: NEGATIVE STUDY OF THE RIGHT HIP. NO EXPLANATION FOR PAIN. TECHNICAL DOCUMENTATION: JOB ID: [id number] [employer]- All Rights Reserved
== END ==
LOC: OD 11:23
PROVIDERS: ATTEND Family Medicine Geriatric Medicine
DX: M54.2 Cervicalgia (principal); M25.512 Pain in left shoulder; M25.551 Pain in right hip
CPT/HCPCS: 72050

== ENCOUNTER → 2017-01-23 | Outpatient (CLI) | payer OTHER ==
[2017-01-23 18:17] LABS: ALANINE AMINOTRANSFERASE 42 U/L (9-52); ASPARTATE AMINO TRANSFERASE 27 U/L (14-36)
== END ==
LOC: OD 15:55
PROVIDERS: ATTEND Family Medicine Geriatric Medicine
DX: R74.0 Nonspecific elevation of levels of transaminase and lactic acid dehydrogenase [LDH] (principal)
CPT/HCPCS: 36415; 84450; 84460

== ENCOUNTER 2017-03-01 14:45 | Emergency (ER) | payer OTHER ==
--- NOTE | 2017-03-01 15:26 | ER Document Report ---
ED Blood Pressure Problem - General Chief Complaint: High Blood Pressure Stated Complaint: BLOOD PRESSURE PROBLEMS Time Seen by Provider: 03/01/17 15:13 Mode of Arrival: Ambulatory Information source: Patient, [facility] Records Notes: This 51-year-old female patient comes emergency room for elevated blood pressure , feeling shaky, and pain in her left shoulder and anterior chest area. She states she normally takes her blood pressure medication at 7 AM which is lisinopril and amlodipine, and then at 6 PM she takes atenolol. She reports about an hour ago or less, she felt shaky and noticed the pain in her upper chest and shoulder on the left. She checked her blood pressure and was 200/110 so she took her atenolol early. She came here to be evaluated. She feels better at this time. Triage her blood pressure is 151/99. She reports when she checks her blood pressure in the evening for 6 PM doses frequently in the 145-150 range. Her blood pressure being now at 151/99 may be because she was excited and anxious about her pain, and is now calm down, or possibly the atenolol she took is bring her pressure down. The patient has been here many times for chest pain including admissions. There has never been any findings of coronary artery disease. TRAVEL OUTSIDE OF THE [place] IN LAST 30 DAYS: No - Related Data Allergies/Adverse Reactions: codeine [Codeine] Allergy (Severe, Verified 03/01/17 14:48) nausea,dizziness Past Medical History - General Information source: Patient, [facility] Records - Social History Smoking Status: Never Smoker Cigarette use (# per day): No Chew tobacco use (# tins/day): No Smoking Education Provided: No Frequency of alcohol use: None Drug Abuse: None Lives with: Family, Spouse/Significant other Family History: DM, Hypertension, Other - Autistic son - Past Medical History Cardiac Medical History: Reports: Hx Hypercholesterolemia, Hx Hypertension Denies: Hx Coronary Artery Disease Pulmonary Medical History: Reports: None EENT Medical History: Reports: None Neurological Medical History: Reports: Hx Cerebrovascular Accident, Hx Migraine Endocrine Medical History: Reports: None Renal/ Medical History: Reports: None GI Medical History: Reports: Hx Gastroesophageal Reflux Disease Musculoskeltal Medical History: Reports Hx Arthritis - Primarily involving her right knee Skin Medical History: Reports None Psychiatric Medical History: Reports: Hx Anxiety Past Surgical History: Reports: Hx Orthopedic Surgery - right carpal tunnel surgery 2011; right knee surgery. - Immunizations Immunizations up to date: Yes Hx Diphtheria, Pertussis, Tetanus Vaccination: Yes Review of Systems - Review of Systems Constitutional: No symptoms reported EENT: No symptoms reported Cardiovascular: See HPI Respiratory: No symptoms reported Gastrointestinal: No symptoms reported Genitourinary: No symptoms reported Female Genitourinary: Post menopausal Musculoskeletal: No symptoms reported Skin: No symptoms reported Hematologic/Lymphatic: No symptoms reported Neurological/Psychological: Anxiety Physical Exam - Vital signs Interpretation: Hypertensive - General General appearance: Appears well, Alert, Anxious In distress: None - HEENT Head: Normocephalic, Atraumatic Eyes: Normal Pupils: PERRL Neck: Normal - Respiratory Respiratory status: No respiratory distress Chest status: Tender Breath sounds: Normal Chest palpation: Tender - There is tenderness to palpate the left upper anterior lateral chest wall near the shoulder. This does reproduce her symptoms. - Cardiovascular Rhythm: Regular Heart sounds: Normal auscultation Murmur: No - Abdominal Inspection: Obese Bowel sounds: Normal Tenderness: Nontender - Back Back: Normal - Extremities General upper extremity: Tender - There is tenderness to palpate the trapezius muscle and the anterior and lateral shoulder muscles around the glenoid region. General lower extremity: Normal inspection - Neurological Neuro grossly intact: Yes - Psychological Associated symptoms: Anxious - Skin Skin Temperature: Warm Skin Moisture: Dry Skin Color: Normal Course - EKG Interpretation by Ar EKG shows normal: Sinus rhythm, [place], Intervals, ST-T Waves. abnormal: QRS Complexes Rate: Normal - 75 Rhythm: NSR Voltage: Consistant with LVH When compared to previous EKG there are: No significant change Discharge - Discharge Clinical Impression: Anterior chest wall pain, Left anterior shoulder pain, Elevated blood pressure reading Condition: Stable Disposition: HOME, SELF-CARE Additional Instructions: Chest Wall Pain: Your chest pain has been diagnosed as coming from the chest wall. This is often caused by straining the muscles or joints in the chest during physical activity, direct trauma, coughing, or vigorous vomiting. Persons with arthritis are especially prone to this type of pain, due to inflammation of the cartilage joints near the breast bone. Occasionally, no cause can be found. Rest from strenuous physical activity. This kind of chest pain is usually made worse by movement of the chest. Depending on the symptoms, we may prescribe medicine for pain, muscle relaxation, and antiinflammatory effects. Apply gentle warmth to the painful area for 15 minutes every hour or two. You should contact the doctor immediately if things change. Further evaluation is needed if you develop a fever or cough, if the nature of the pain changes, or if you become short of breath. //////////////////////////////////////////////////////////////////////////////// //////////////////////////////////////////////////////////// Your chest pain and shoulder pain is coming from the muscles in your chest wall in your shoulder. Your blood pressure was elevated, this may be due to anxiety about your pain. Your blood pressure has come down quite a lot since taking your blood pressure medication. You should check your blood pressure later this evening and if it is gone back up then take an additional dose of your atenolol. You should take Tylenol and Motrin for the chest wall pain. Moist heat to the painful muscles often helps. Follow-up with your doctor tomorrow if your blood pressure remains elevated or any other problems. RETURN TO THE EMERGENCY ROOM IF ANY NEW OR WORSENING SYMPTOMS.
[2017-03-01 16:29] VITALS: BP 168/97
--- NOTE | 2017-03-04 12:35 | EKG REPORT ---
SEVERITY:- ABNORMAL ECG - SINUS RHYTHM LEFT VENTRICULAR HYPERTROPHY : Confirmed by: Soniya Dean MD 04-Mar-2017 12:35:05
== END 2017-03-01 16:29 | disposition home or self-care (01) ==
LOC: ER 14:45
DX: R07.89 Other chest pain (principal); M25.512 Pain in left shoulder; I10 Essential (primary) hypertension; R07.9 Chest pain, unspecified; Z79.899 Other long term (current) drug therapy
CPT/HCPCS: 82962; 93005; 93010; 99283

== ENCOUNTER 2017-07-06 21:27 | Emergency (ER) | payer OTHER ==
--- NOTE | 2017-07-06 22:30 | ER Document Report ---
ED General - General Chief Complaint: High Blood Pressure Stated Complaint: BLOOD PRESSURE PROBLEM Time Seen by Provider: 07/06/17 21:47 Notes: Patient is a 51-year-old female with a past medical history of essential hypertension, morbid obesity, pressure and episode of dizziness and headache that has now resolved. The patient states that at home she began to have some lightheadedness and a dull, mild, throbbing headache that started gradually and built up over. She reports this feels very similar to when she has had episodes of essential hypertension in the past. She therefore checked her blood pressure this prompted her to come to the emergency department. She has had similar emergency department visits in the past. She denies any ongoing headache or dizziness at the time of my evaluation. She denies any chest pain or shortness of breath at any time today. She denies any focal weakness or numbness. She did not do anything to improve her symptoms other than take Tylenol and she does attribute the resolution of her symptoms to this medication. Nothing seemed to have triggered or worsened her symptoms when they are present. She has not seen her primary care doctor regarding today's concerns. TRAVEL OUTSIDE OF THE [place] IN LAST 30 DAYS: No - Related Data Allergies/Adverse Reactions: codeine [Codeine] Allergy (Severe, Verified 03/01/17 14:48) nausea,dizziness Past Medical History - General Information source: Patient, Relative - Social History Smoking Status: Never Smoker Frequency of alcohol use: None Drug Abuse: None Lives with: Family Family History: DM, Hypertension, Other - Autistic son Patient has suicidal ideation: No Patient has homicidal ideation: No - Past Medical History Cardiac Medical History: Reports: Hx Hypercholesterolemia, Hx Hypertension Denies: Hx Congestive Heart Failure, Hx Coronary Artery Disease, Hx DVT, Hx Heart Attack, Hx Pulmonary Embolism Pulmonary Medical History: Denies: Hx Asthma, Hx Bronchitis, Hx COPD, Hx Pneumonia Neurological Medical History: Reports: Hx Cerebrovascular Accident, Hx Migraine. Denies: Hx Seizures Endocrine Medical History: Denies: Hx Diabetes Mellitus Type 1, Hx Diabetes Mellitus Type 2, Hx Hyperthyroidism, Hx Hypothyroidism Renal/ Medical History: Denies: Hx Peritoneal Dialysis GI Medical History: Reports: Hx Gastroesophageal Reflux Disease. Denies: Hx Cirrhosis, Hx Hepatitis Musculoskeltal Medical History: Reports Hx Arthritis - Primarily involving her right knee Psychiatric Medical History: Reports: Hx Anxiety Denies: Hx Depression Infectious Medical History: Denies: Hx Hepatitis Past Surgical History: Reports: Hx Orthopedic Surgery - right carpal tunnel surgery 2011; right knee surgery. - Immunizations Immunizations up to date: Yes Hx Diphtheria, Pertussis, Tetanus Vaccination: Yes Review of Systems - Review of Systems Notes: Constitutional: Negative for fever. HENT: Negative for sore throat. Eyes: Negative for visual changes. Cardiovascular: Negative for chest pain. Respiratory: Negative for shortness of breath. Gastrointestinal: Negative for abdominal pain, vomiting or diarrhea. Genitourinary: Negative for dysuria. Musculoskeletal: Negative for back pain. Skin: Negative for rash. Neurological: Positive for headache now resolved 10 point ROS negative except as marked above and in HPI. Physical Exam - Vital signs Vitals: Temp Pulse Resp BP Pulse Ox 98.7 F 95 18 156/87 H 98 07/06/17 21:33 07/06/17 21:33 07/06/17 21:33 07/06/17 21:33 07/06/17 21:33 Interpretation: Hypertensive Notes: PHYSICAL EXAMINATION: GENERAL: Well-appearing, well-nourished and in no acute distress. HEAD: Atraumatic, normocephalic. EYES: Pupils equal round and reactive to light, extraocular movements intact, sclera anicteric, conjunctiva are normal. ENT: nares patent, oropharynx clear without exudates. Moist mucous membranes. NECK: Normal range of motion, supple without lymphadenopathy LUNGS: Breath sounds clear to auscultation bilaterally and equal. No wheezes rales or rhonchi. HEART: Regular rate and rhythm without murmurs ABDOMEN: Soft, nontender, normoactive bowel sounds. No guarding, no rebound. No masses appreciated. EXTREMITIES: Normal range of motion, no pitting or edema. No cyanosis. NEUROLOGICAL: Face symmetric. Tongue protrudes midline. Extraocular motions intact. Pupils are 2 mm and equally reactive. Normal speech, normal gait. 5 out of 5 strength in both the distal and proximal upper and lower extremities bilaterally. Sensation is grossly intact throughout. Finger to nose testing normal. Pronator drift normal. PSYCH: Normal mood, normal affect. SKIN: Warm, Dry, normal turgor, no rashes or lesions noted. Course - Re-evaluation Re-evalutation: 07/06/17 22:30 Presentation of hypertension and originally was somewhat dizzy but reports that that his symptom has since resolved. Patient denies any symptoms concerning for SAH, dissection, ND, or encephalopaty. Alert, oriented, and denies any symptoms at time of assessment. Normal neuro exam. Per [facility] policy guidelines, will therefore not obtain any labs or EKG at this time. I have had an extended conversation with the patient and her daughter at the bedside as it appears that sometimes the patient is checking her blood pressure approximately every 2- 3 hours and this could be contributing to her symptoms. Her blood pressure at time of arrival is mildly elevated. Patient appears to have episodes once every several months in which her blood pressure apparently becomes quite high and she develops either lightheadedness or headaches. I will therefore prescribe her atenolol as needed in which she begins to develop some symptoms similar today and find that her blood pressure is markedly elevated. 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 At this time will discharge with return precautions and follow-up recommendations. Verbal discharge instructions given a the bedside and opportunity for questions given. Medication warnings reviewed. Patient is in agreement with this plan and has verbalized understanding of return precautions and the need for primary care follow-up in the next 24-72 hours. - Vital Signs Vital signs: Temp Pulse Resp BP Pulse Ox 97.8 F 80 18 145/93 H 99 07/06/17 22:57 07/06/17 22:57 07/06/17 22:57 07/06/17 22:57 07/06/17 22:57 Discharge - Discharge Clinical Impression: Essential hypertension, Episode of dizziness Condition: Good Disposition: HOME, SELF-CARE Additional Instructions: You were seen today for blood pressure that was high. This is a long-term risk factor for multiple medical problems including heart attack and stroke. However, the blood pressure in of itself will not cause you to have an acute stroke or heart attack over the course of just several days or weeks. If you develop symptoms similar today such as dizziness or headache and find that your blood pressure is high, you may take the atenolol that was prescribed today. Please do not take this medication unless you are having high blood pressure with symptoms. If taking the atenolol does not resolve your symptoms, please return to the emergency department immediately. Please also return to the emergency department if you develop chest pain, shortness of breath, weakness, numbness, confusion, or any other symptoms that are worrisome to you. Prescriptions: Atenolol [Tenormin] 25 mg PO ONCE PRN #30 tablet PRN Reason:
[2017-07-06 22:42] VITALS: BP 145/93
== END 2017-07-06 22:57 | disposition home or self-care (01) ==
LOC: ER 21:27
DX: I10 Essential (primary) hypertension (principal); R42 Dizziness and giddiness; R51 Headache; Z88.5 Allergy status to narcotic agent; Z86.73 Personal history of transient ischemic attack (TIA), and cerebral infarction without residual deficits; Z86.69 Personal history of other diseases of the nervous system and sense organs
CPT/HCPCS: 99283

== ENCOUNTER → 2017-07-14 | Outpatient (CLI) | payer OTHER ==
[2017-07-14 10:38] LABS: ALANINE AMINOTRANSFERASE 46 U/L (9-52); ANION GAP 10 (5-19); BLOOD UREA NITROGEN 13 mg/dL (7-20); CALCIUM 10.1 mg/dL (8.4-10.2); CARBON DIOXIDE 32 mmol/L (22-30); CHLORIDE 105 mmol/L (98-107); CHOLESTEROL 222.51 mg/dL (0-200); GLUCOSE 104 mg/dL (75-110); POTASSIUM 4.4 mmol/L (3.6-5.0); SODIUM 147.2 mmol/L (137-145); TRIGLYCERIDES 218 mg/dL (<150)
[2017-07-14 10:49] LABS: DIRECT LDL 115 mg/dL (<100)
[2017-07-14 10:55] LABS: VLDL CHOLESTEROL 43.6 mg/dL (10-31)
== END ==
LOC: OD 09:25
PROVIDERS: ATTEND Family Medicine Geriatric Medicine
DX: I10 Essential (primary) hypertension (principal); E78.5 Hyperlipidemia, unspecified
CPT/HCPCS: 36415; 80048; 80061; 84460

== ENCOUNTER → 2018-01-08 | Outpatient (CLI) | payer OTHER ==
[2018-01-08 15:43] LABS: LIPASE 55.3 U/L (23-300)
== END ==
LOC: OD 14:22
PROVIDERS: ATTEND Family Medicine Geriatric Medicine
DX: R10.0 Acute abdomen (principal); K21.0 Gastro-esophageal reflux disease with esophagitis; Z79.899 Other long term (current) drug therapy
CPT/HCPCS: 36415; 82150; 83690

== ENCOUNTER → 2018-01-09 | Outpatient (CLI) | payer OTHER ==
--- NOTE | 2018-01-09 11:59 | RADIOLOGY REPORT (SQ) ---
EXAM DESCRIPTION: U/S ABDOMEN LTD W/DOPPLER COMPLETED DATE/TIME: 01/09/2018 10:05 am REASON FOR STUDY: ACUTE ABD PAIN (R10.0) R10.0 ACUTE ABDOMEN left upper quadrant pain COMPARISON: None. TECHNIQUE: Dynamic and static grayscale images acquired of the left upper quadrant abdomen and recor ded on PACS. Additional selected color Doppler and spectral images recorded. LIMITATIONS: Pancreatic tail not visualized due to left upper quadrant bowel gas FINDINGS: LEFT UPPER QUADRANT ULTRASOUND WAS ORDERED BY THE CLINICIAN AND PERFORMED. The spleen is 9.2 cm in length. No splenic lesions. No left upper quadrant free fluid. Left kidney is 10 cm in length. No cysts, stones, masses, or hydronephrosis. Pancreatic tail not visualized due to left upper quadrant bowel gas. IMPRESSION: NORMAL LEFT UPPER QUADRANT ULTRASOUND. TECHNICAL DOCUMENTATION: JOB ID: [id number] [employer]- All Rights Reserved Reading location - IP/workstation name: [email or web address]
== END ==
LOC: RAD 09:17
PROVIDERS: ATTEND Family Medicine Geriatric Medicine
DX: R10.0 Acute abdomen (principal)
CPT/HCPCS: 76705; 93976

== ENCOUNTER → 2018-03-23 | Outpatient (CLI) | payer OTHER ==
[2018-03-23 12:41] LABS: ALANINE AMINOTRANSFERASE 40 U/L (9-52); ANION GAP 8 (5-19); BLOOD UREA NITROGEN 17 mg/dL (7-20); CALCIUM 9.8 mg/dL (8.4-10.2); CARBON DIOXIDE 27 mmol/L (22-30); CHLORIDE 107 mmol/L (98-107); CHOLESTEROL 161.91 mg/dL (0-200); GLUCOSE 99 mg/dL (75-110); POTASSIUM 4.5 mmol/L (3.6-5.0); SODIUM 142.2 mmol/L (137-145); TRIGLYCERIDES 81 mg/dL (<150)
[2018-03-23 12:52] LABS: DIRECT LDL 85 mg/dL (<100)
== END ==
LOC: OD 11:28
PROVIDERS: ATTEND Family Medicine Geriatric Medicine
DX: K21.0 Gastro-esophageal reflux disease with esophagitis (principal); R11.2 Nausea with vomiting, unspecified; E78.5 Hyperlipidemia, unspecified; Z79.899 Other long term (current) drug therapy; J30.89 Other allergic rhinitis; Z29.9 Encounter for prophylactic measures, unspecified; I10 Essential (primary) hypertension
CPT/HCPCS: 36415; 80048; 80061; 84460

== ENCOUNTER → 2018-04-18 | Outpatient (CLI) | payer OTHER | LOC: OD 12:25 | PROVIDERS: ATTEND Family Medicine Geriatric Medicine | DX: J01.40 Acute pansinusitis, unspecified (principal); R05 Cough; Z79.899 Other long term (current) drug therapy; Z53.8 Procedure and treatment not carried out for other reasons ==

== ENCOUNTER → 2018-08-07 | Outpatient (CLI) | payer OTHER ==
--- NOTE | 2018-08-07 15:48 | WOMENS IMAGING REPORT ---
EXAM DESCRIPTION: BILAT SCREENING MAMMO W/CAD COMPLETED DATE/TIME: 08/07/2018 1:32 pm REASON FOR STUDY: Z12.31 ROUTINE BILATERAL SCREENING Z12.31 ENCNTR SCREEN MAMMOGRAM FOR MALIGNANT N EOPLASM OF MANOHAR COMPARISON: None. EXAM PARAMETERS: Standard craniocaudal and mediolateral oblique views of each breast recorded using digital acquisition. Read with the assistance of CAD. 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 FINDINGS: No suspicious masses, suspicious calcifications or architectural distortion. No areas of s uspicion. IMPRESSION: ASSESSMENT: Negative MAMMOGRAM. BIRADS 1 BREAST DENSITY: b. There are scattered areas of fibroglandular density. BIRAD: 1 NEGATIVE RECOMMENDATION: ROUTINE SCREENING COMMENT: The patient has been notified of the results by letter per MQSA requirements. Additional no tification policies are in place for contacting patient with suspicious or incomplete findings. Quality ID #[id number]: The [employer] recommends an annual screening mammogram for women aged 40 years or over. This facility utilizes a reminder system to ensure that all patients receive reminder letters, and/or direct phone calls for appointments. This includes reminders for routine scr eening mammograms, diagnostic mammograms, or other Breast Imaging Interventions when appropriate. Th is patient will be placed in the appropriate reminder system. TECHNICAL DOCUMENTATION: FINDING NUMBER: (1) ASSESSMENT: (1) JOB ID: [id number] [employer]- All Rights Reserved Reading location - IP/workstation name: [email or web address]
== END ==
LOC: WI 13:08
PROVIDERS: ATTEND Family Medicine Geriatric Medicine
DX: Z12.31 Encounter for screening mammogram for malignant neoplasm of breast (principal)
CPT/HCPCS: 77067

== ENCOUNTER 2018-11-09 23:33 | Emergency (ER) | payer OTHER ==
[2018-11-10 02:19] LABS: ABSOLUTE EOSINOPHILS # (AUTO) 0.3 10^3/uL (0.0-0.6); ABSOLUTE LYMPHOCYTES (AUTO) 3.5 10^3/uL (0.5-4.7); ABSOLUTE MONOCYTES (AUTO) 0.5 10^3/uL (0.1-1.4); ABSOLUTE NEUT (AUTO) 4.3 10^3/uL (1.7-8.2); BASOPHILS % (AUTO) 0.6 % (0-2); EOSINOPHILS % (AUTO) 3.7 % (0-6); HEMATOCRIT 39.4 % (36.0-47.0); HEMOGLOBIN 13.2 g/dL (12.0-15.5); LYMPHOCYTES % (AUTO) 40.1 % (13-45); MEAN CORPUSCULAR HEMOGLOBIN 27.5 pg (27.0-33.4); MEAN CORPUSCULAR HGB CONC 33.4 g/dL (32.0-36.0); MEAN CORPUSCULAR VOLUME 82 fl (80-97); MONOCYTES % (AUTO) 5.7 % (3-13); PLATELET COUNT 234 10^3/uL (150-450); RED BLOOD COUNT 4.79 10^6/uL (3.72-5.28); RED CELL DISTRIBUTION WIDTH 14.2 % (11.5-14.0); SEGMENTED NEUTROPHILS % (AUTO) 49.9 % (42-78); TOTAL CELLS COUNTED % (AUTO) 100 %; WHITE BLOOD COUNT 8.7 10^3/uL (4.0-10.5)
[2018-11-10 02:28] LABS: ALBUMIN 4.4 g/dL (3.5-5.0); ALKALINE PHOSPHATASE 80 U/L (38-126); ANION GAP 7 (5-19); ASPARTATE AMINO TRANSFERASE 35 U/L (14-36); BILIRUBIN,DIRECT 0.3 mg/dL (0.0-0.4); BILIRUBIN,TOTAL 0.4 mg/dL (0.2-1.3); BLOOD UREA NITROGEN 20 mg/dL (7-20); CALCIUM 9.9 mg/dL (8.4-10.2); CARBON DIOXIDE 31 mmol/L (22-30); CHLORIDE 104 mmol/L (98-107); CREATINE KINASE 111 U/L (30-135); GLUCOSE 126 mg/dL (75-110); POTASSIUM 3.9 mmol/L (3.6-5.0); TOTAL PROTEIN 7.4 g/dL (6.3-8.2)
[2018-11-10 02:47] LABS: CREATINE KINASE MB 0.72 ng/mL (<4.55)
[2018-11-10 03:02] LABS: TROPONIN I < 0.012 ng/mL
--- NOTE | 2018-11-10 04:42 | ER Document Report ---
ED Blood Pressure Problem - General Chief Complaint: High Blood Pressure Stated Complaint: HIGH BLOOD PRESSURE Time Seen by Provider: 11/10/18 04:28 Primary Care Provider: JEFFREY PEDROZA MD [Primary Care Provider] - Follow up as needed Notes: Patient is a 53-year-old female that comes to the emergency department for chief complaint of elevated blood pressure reading. She states she took her blood pressure at home and it was in the 180s. She states she is not sure why she took her blood pressure, she just checks it routinely. She denies headache, chest pain, dizziness, or any symptoms at all. She states she has not had any symptoms before or after arrival to the emergency department. She states she takes lisinopril/HCTZ, 1012.5. She states she is compliant with this but she had missed her dose before she took her blood pressure reading. She denies any other medications, denies smoking, denies alcohol, denies recreational drugs. She does admit to caffeine. She denies depression, difficulty sleeping, or any other complaints. at bedside. TRAVEL OUTSIDE OF THE [place] IN LAST 30 DAYS: No - Related Data Allergies/Adverse Reactions: codeine [Codeine] Allergy (Severe, Verified 03/01/17 14:48) nausea,dizziness Past Medical History - General Information source: Patient - Social History Smoking Status: Never Smoker Frequency of alcohol use: None Drug Abuse: None Lives with: Family Family History: DM, Hypertension, Other - Autistic son Patient has suicidal ideation: No Patient has homicidal ideation: No - Past Medical History Cardiac Medical History: Reports: Hx Hypercholesterolemia, Hx Hypertension Denies: Hx Congestive Heart Failure, Hx Coronary Artery Disease, Hx DVT, Hx Heart Attack, Hx Pulmonary Embolism Pulmonary Medical History: Denies: Hx Asthma, Hx Bronchitis, Hx COPD, Hx Pneumonia Neurological Medical History: Reports: Hx Cerebrovascular Accident, Hx Migraine. Denies: Hx Seizures Endocrine Medical History: Denies: Hx Diabetes Mellitus Type 1, Hx Diabetes Mellitus Type 2, Hx Hyperthyroidism, Hx Hypothyroidism Renal/ Medical History: Denies: Hx Peritoneal Dialysis GI Medical History: Reports: Hx Gastroesophageal Reflux Disease. Denies: Hx Cirrhosis, Hx Hepatitis Musculoskeletal Medical History: Reports Hx Arthritis - Primarily involving her right knee Psychiatric Medical History: Reports: Hx Anxiety Denies: Hx Depression Infectious Medical History: Denies: Hx Hepatitis Past Surgical History: Reports: Hx Orthopedic Surgery - right carpal tunnel surgery 2010; right knee surgery. - Immunizations Immunizations up to date: Yes Hx Diphtheria, Pertussis, Tetanus Vaccination: Yes Review of Systems - Review of Systems Constitutional: See HPI EENT: No symptoms reported Cardiovascular: No symptoms reported Respiratory: No symptoms reported Gastrointestinal: No symptoms reported Genitourinary: No symptoms reported Female Genitourinary: No symptoms reported Musculoskeletal: No symptoms reported Skin: No symptoms reported Hematologic/Lymphatic: No symptoms reported Neurological/Psychological: No symptoms reported Physical Exam - Vital signs Vitals: Temp Pulse Resp BP Pulse Ox 98.1 F 73 20 167/88 H 97 11/09/18 23:37 11/09/18 23:37 11/09/18 23:37 11/09/18 23:37 11/09/18 23:37 - Notes Notes: GENERAL: Alert, interacts well. No acute distress. HEAD: Normocephalic, atraumatic. EYES: Pupils equal, round, and reactive to light. Extraocular movements intact. ENT: Oral mucosa moist, tongue midline. Oropharynx unremarkable. Airway patent. LUNGS: Clear to auscultation bilaterally, no wheezes, rales, or rhonchi. No respiratory distress. HEART: Regular rate and rhythm. No murmur ABDOMEN: Soft, non-tender. Non-distended. Bowel sounds present in all 4 qu adrants. GENITOURINARY: Deferred EXTREMITIES: Moves all 4 extremities spontaneously. No edema, normal radial and dorsalis pedis pulses bilaterally. No cyanosis. BACK: no cervical, thoracic, lumbar midline tenderness. No saddle anesthesia, normal distal neurovascular exam. Moves all extremities in full range of motion. NEUROLOGICAL: Alert and oriented x3. Normal speech. Cranial nerves II through XI I grossly intact. PSYCH: Normal affect, normal mood. SKIN: Warm, dry, normal turgor. No rashes or lesions noted. Course - Re-evaluation Re-evalutation: The patient declined an foreign language interpreter. She asked that she communicate with Mona kruger and her interpret anything she did not. This actually went very well and her speaks good [place]e along with the patient's beating reasonably good Surinamese. I did review work-up from triage including CBC, chemistry, troponin. These were unremarkable including renal functioning and troponin. Patient's blood pressures in the 140s on my evaluation. She still has no complaints. No neurological deficits other concerning findings. I did discuss general blood pressure monitoring and concerns, blood pressure journal, follow-up, and reasons to return to the emergency department. Patient states appreciation and agreement. Stable time of discharge. - Vital Signs Vital signs: Temp Pulse Resp BP Pulse Ox 97.8 F 63 12 144/85 H 99 11/10/18 04:53 11/10/18 04:53 11/10/18 04:53 11/10/18 04:53 11/10/18 04:53 - Laboratory Result Diagrams: 11/10/18 00:20 11/10/18 00:20 Laboratory results interpreted by me: 11/10/18 11/10/18 00:20 00:20 RDW 14.2 H Carbon Dioxide 31 H Glucose 126 H Discharge - Discharge Clinical Impression: Elevated blood pressure reading Condition: Stable Disposition: HOME, SELF-CARE Additional Instructions: Your lab tests including your kidney test today are normal. Your blood pressure was high earlier but is normal here. I recommend that you keep a journal where you check your blood pressure 2-3 times a day for about 5 to 7 days, then take the sternal to your primary care provider so they can adjust your blood pressure if needed. Come back for any concerning symptoms including developing a bad headache, having chest pain, or something is not right. Referrals: JEFFREY PEDROZA MD [Primary Care Provider] - Follow up as needed
[2018-11-10 04:54] VITALS: BP 144/85
== END 2018-11-10 04:53 | disposition home or self-care (01) ==
LOC: ER 23:33
DX: I10 Essential (primary) hypertension (principal); Z79.899 Other long term (current) drug therapy; Z88.5 Allergy status to narcotic agent
CPT/HCPCS: 36415; 80053; 82550; 82553; 84484; 85025; 99283

== ENCOUNTER 2018-12-25 17:16 | Emergency (ER) | payer OTHER ==
[2018-12-25] MEDS ORDERED: ASPIRIN 81 MG TABLET, CHEWABLE PO ONE (17:58)
--- NOTE | 2018-12-25 17:59 | ER Document Report ---
ED Medical Screen (RME) - General Chief Complaint: Chest Pain Stated Complaint: CHEST PAIN Time Seen by Provider: 12/25/18 17:58 Primary Care Provider: JEFFREY PEDROZA MD [Primary Care Provider] - Follow up as needed Information source: Patient Notes: Patient presents complaining of chest pain that she describes as a pressure with increased blood pressure that started around 4 PM today. Patient does complain of some nausea. No cough or cold symptoms. No shortness of breath. Patient does report a history of hypertension and has been compliant with her medications. I have greeted and performed a rapid initial assessment of this patient. A comprehensive ED assessment and evaluation of the patient, analysis of test results and completion of the medical decision making process will be conducted by additional ED providers. TRAVEL OUTSIDE OF THE [place] IN LAST 30 DAYS: No - Related Data Allergies/Adverse Reactions: codeine [Codeine] Allergy (Severe, Verified 12/25/18 17:57) nausea,dizziness Past Medical History - Past Medical History Cardiac Medical History: Reports: Hx Hypercholesterolemia, Hx Hypertension Denies: Hx Congestive Heart Failure, Hx Coronary Artery Disease, Hx DVT, Hx Heart Attack, Hx Pulmonary Embolism Pulmonary Medical History: Denies: Hx Asthma, Hx Bronchitis, Hx COPD, Hx Pneumonia Neurological Medical History: Reports: Hx Cerebrovascular Accident, Hx Migraine. Denies: Hx Seizures Endocrine Medical History: Denies: Hx Diabetes Mellitus Type 1, Hx Diabetes Mellitus Type 2, Hx Hyperthyroidism, Hx Hypothyroidism Renal/ Medical History: Denies: Hx Peritoneal Dialysis GI Medical History: Reports: Hx Gastroesophageal Reflux Disease. Denies: Hx Cirrhosis, Hx Hepatitis Musculoskeltal Medical History: Reports Hx Arthritis - Primarily involving her right knee Psychiatric Medical History: Reports: Hx Anxiety Denies: Hx Depression Infectious Medical History: Denies: Hx Hepatitis Past Surgical History: Reports: Hx Orthopedic Surgery - right carpal tunnel surgery 2010; right knee surgery. - Immunizations Immunizations up to date: Yes Hx Diphtheria, Pertussis, Tetanus Vaccination: Yes Physical Exam - Vital signs Vitals: Temp Pulse Resp BP Pulse Ox 98.4 F 77 18 165/96 H 98 12/25/18 17:27 12/25/18 17:27 12/25/18 17:27 12/25/18 17:27 12/25/18 17:27 - Cardiovascular Rhythm: Regular Heart sounds: S1 appreciated, S2 appreciated Murmur: No Course - Vital Signs Vital signs: Temp Pulse Resp BP Pulse Ox 98.4 F 77 18 165/96 H 98 12/25/18 17:27 12/25/18 17:27 12/25/18 17:27 12/25/18 17:27 12/25/18 17:27 Doctor's Discharge - Discharge Referrals: JEFFREY PEDROZA MD [Primary Care Provider] - Follow up as needed
--- NOTE | 2018-12-25 18:20 | RADIOLOGY REPORT (SQ) ---
EXAM DESCRIPTION: CHEST 2 VIEWS COMPLETED DATE/TIME: 12/25/2018 6:11 pm REASON FOR STUDY: cp COMPARISON: Chest radiographs 03/08/2016 EXAM PARAMETERS: NUMBER OF VIEWS: two views TECHNIQUE: Digital Frontal and Lateral radiographic views of the chest acquired. RADIATION DOSE: NA LIMITATIONS: none FINDINGS: LUNGS AND PLEURA: No opacities, masses or pneumothorax. No pleural effusion. MEDIASTINUM AND HILAR STRUCTURES: No masses or contour abnormalities. HEART AND VASCULAR STRUCTURES: Heart normal size. No evidence for failure. BONES: No acute findings. HARDWARE: None in the chest. OTHER: No other significant finding. IMPRESSION: NO ACUTE RADIOGRAPHIC FINDING IN THE CHEST. TECHNICAL DOCUMENTATION: JOB ID: [id number] [employer] All Rights Reserved Reading location - IP/workstation name: [email or web address]
--- NOTE | 2018-12-25 19:01 | EKG REPORT ---
SEVERITY:- ABNORMAL ECG - SINUS RHYTHM LEFT VENTRICULAR HYPERTROPHY : Confirmed by: Soniya Dean MD 25-Dec-2018 19:00:34
[2018-12-25 19:10] LABS: ABSOLUTE BASOPHILS # (AUTO) 0.1 10^3/uL (0.0-0.2); ABSOLUTE EOSINOPHILS # (AUTO) 0.2 10^3/uL (0.0-0.6); ABSOLUTE LYMPHOCYTES (AUTO) 2.3 10^3/uL (0.5-4.7); ABSOLUTE MONOCYTES (AUTO) 0.4 10^3/uL (0.1-1.4); ABSOLUTE NEUT (AUTO) 4.6 10^3/uL (1.7-8.2); BASOPHILS % (AUTO) 0.8 % (0-2); EOSINOPHILS % (AUTO) 2.4 % (0-6); HEMOGLOBIN 12.9 g/dL (12.0-15.5); LYMPHOCYTES % (AUTO) 30.1 % (13-45); MEAN CORPUSCULAR HEMOGLOBIN 27.4 pg (27.0-33.4); MEAN CORPUSCULAR HGB CONC 33.1 g/dL (32.0-36.0); MEAN CORPUSCULAR VOLUME 83 fl (80-97); MONOCYTES % (AUTO) 5.9 % (3-13); PLATELET COUNT 222 10^3/uL (150-450); RED BLOOD COUNT 4.72 10^6/uL (3.72-5.28); SEGMENTED NEUTROPHILS % (AUTO) 60.8 % (42-78); TOTAL CELLS COUNTED % (AUTO) 100 %; WHITE BLOOD COUNT 7.6 10^3/uL (4.0-10.5)
[2018-12-25 19:11] LABS: APPEARANCE,URINE CLEAR; BILIRUBIN,URINE NEGATIVE (NEGATIVE); COLOR,URINE STRAW; GLUCOSE, URINE NEGATIVE (NEGATIVE); KETONES,URINE NEGATIVE (NEGATIVE); LEUKOCYTE ESTERASE,URINE NEGATIVE (NEGATIVE); NITRITE,URINE NEGATIVE (NEGATIVE); PROTEIN,URINE NEGATIVE (NEGATIVE); URINE SPECIFIC GRAVITY 1.008; UROBILINOGEN,URINE NEGATIVE mg/dL (<2.0)
[2018-12-25 19:27] LABS: BLOOD UREA NITROGEN 12 mg/dL (7-20); CALCIUM 9.9 mg/dL (8.4-10.2); CARBON DIOXIDE 27 mmol/L (22-30); CHLORIDE 104 mmol/L (98-107); GLUCOSE 86 mg/dL (75-110); POTASSIUM 3.7 mmol/L (3.6-5.0)
[2018-12-25 19:28] LABS: ALBUMIN 4.8 g/dL (3.5-5.0); ALKALINE PHOSPHATASE 76 U/L (38-126); ANION GAP 11 (5-19); ASPARTATE AMINO TRANSFERASE 28 U/L (14-36); BILIRUBIN,DIRECT 0.1 mg/dL (0.0-0.4); BILIRUBIN,TOTAL 0.3 mg/dL (0.2-1.3); TOTAL PROTEIN 7.9 g/dL (6.3-8.2)
[2018-12-25 19:39] LABS: NT PRO BNP 36 pg/mL (5-900)
[2018-12-25 19:43] LABS: TROPONIN I < 0.012 ng/mL
[2018-12-25] MEDS ORDERED: ALPRAZOLAM 0.5 MG TABLET PO ONE (21:16)
--- NOTE | 2018-12-25 21:16 | ER Document Report ---
ED General - General Chief Complaint: Chest Pain Stated Complaint: CHEST PAIN Time Seen by Provider: 12/25/18 17:58 Primary Care Provider: JEFFREY PEDROZA MD [Primary Care Provider] - Follow up as needed Mode of Arrival: Ambulatory Information source: Patient, Relative TRAVEL OUTSIDE OF THE [place] IN LAST 30 DAYS: No - HPI Notes: Patient presents complaining of chest pain that she describes as a pressure with increased blood pressure that started around 4 PM today. Patient does complain of some nausea. No cough or cold symptoms. No shortness of breath. Patient does report a history of hypertension and has been compliant with her medications. Patient has previous history of similar chest pains in the past. She last had a negative cardiac stress test 2 years ago for the same chest discomfort by her report. The patient has a history of hypertension, hypercholesterolemia, reflux and anxiety. The patient states the chest pain came on at 1700 today while she was driving at rest. She denies any dyspnea or leg pain or swelling. The patient reports she was rubbing her left chest after the onset of discomfort and has some mild skin irritation there but no other rash. The patient denies any belching or cough. She reports no radiation of the pain through to her back. She has been compliant with her medications which include aspirin Norvasc and lisinopril. Patient does admit to some anxiety, but states she feels safe at home. Pain lasted for about 1 hour and then resolved. - Related Data Allergies/Adverse Reactions: codeine [Codeine] Allergy (Severe, Verified 12/25/18 17:57) nausea,dizziness Home Medications: lisinopril/hctz, cholesterol pill Past Medical History - General Information source: Patient, Relative - Social History Smoking Status: Never Smoker Chew tobacco use (# tins/day): No Frequency of alcohol use: None Drug Abuse: None Lives with: Family Family History: DM, Hypertension, Other - Autistic son Patient has suicidal ideation: No Patient has homicidal ideation: No - Past Medical History Cardiac Medical History: Reports: Hx Hypercholesterolemia, Hx Hypertension Denies: Hx Congestive Heart Failure, Hx Coronary Artery Disease, Hx DVT, Hx Heart Attack, Hx Pulmonary Embolism Pulmonary Medical History: Denies: Hx Asthma, Hx Bronchitis, Hx COPD, Hx Pneumonia Neurological Medical History: Reports: Hx Cerebrovascular Accident, Hx Migraine. Denies: Hx Seizures Endocrine Medical History: Denies: Hx Diabetes Mellitus Type 1, Hx Diabetes Mellitus Type 2, Hx Hyperthyroidism, Hx Hypothyroidism Renal/ Medical History: Denies: Hx Peritoneal Dialysis GI Medical History: Reports: Hx Gastroesophageal Reflux Disease. Denies: Hx Cirrhosis, Hx Hepatitis Musculoskeletal Medical History: Reports Hx Arthritis - Primarily involving her right knee Psychiatric Medical History: Reports: Hx Anxiety Denies: Hx Depression Infectious Medical History: Denies: Hx Hepatitis Past Surgical History: Reports: Hx Orthopedic Surgery - right carpal tunnel surgery 2011; right knee surgery. - Immunizations Immunizations up to date: Yes Hx Diphtheria, Pertussis, Tetanus Vaccination: Yes Review of Systems - Review of Systems -: Yes All other systems reviewed and negative Physical Exam - Vital signs Vitals: Temp Pulse Resp BP Pulse Ox 98.4 F 77 18 165/96 H 98 12/25/18 17:27 12/25/18 17:27 12/25/18 17:27 12/25/18 17:27 12/25/18 17:27 - Notes Notes: PHYSICAL EXAMINATION: GENERAL: Well-appearing, well-nourished and in no acute distress. Somewhat anxious. HEAD: Atraumatic, normocephalic. EYES: Pupils equal round and reactive to light, extraocular movements intact, conjunctiva are normal. ENT: Nares patent, oropharynx clear without exudates. Moist mucous membranes. NECK: Normal range of motion, supple without lymphadenopathy LUNGS: Breath sounds clear to auscultation bilaterally and equal. No wheezes ra les or rhonchi. HEART: Regular rate and rhythm without murmurs. Unable to reproduce patient's chest wall pain on palpation. ABDOMEN: Soft, nontender, nondistended abdomen. No guarding, no rebound. No masses appreciated. Female : deferred Musculoskeletal: Normal range of motion, no pitting or edema. No cyanosis. NEUROLOGICAL: Cranial nerves grossly intact. Normal speech, normal gait. N ormal sensory, motor exams PSYCH: Normal mood, normal affect. SKIN: Warm, Dry, normal turgor. Very mild erythema with a superficial dermatitis secondary to the patient rubbing her left anterior chest. No cellulitis. No dermatomal radiation through to the back or suggestion for shingles. Course - Re-evaluation Re-evalutation: 12/25/18 23:38 After receiving Xanax, the patient had complete resolution of all symptoms and denied any chest pain and she was resting comfortably on repeat exam. Initial and repeat troponin were negative. There is no evidence for anemia, electrolyte imbalance, acute [place] or ischemia, pneumonia, pneumothorax, CHF. Question a anxiety reaction with resultant chest pain and the patient did admit to being under significant stress. 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 - Vital Signs Vital signs: Temp Pulse Resp BP Pulse Ox 97.9 F 77 19 162/93 H 99 12/25/18 21:00 12/25/18 17:27 12/25/18 21:01 12/25/18 21:01 12/25/18 21:01 - Laboratory Result Diagrams: 12/25/18 18:50 12/25/18 18:50 - EKG Interpretation by Nv EKG shows normal: Sinus rhythm Additional EKG results interpreted by me: 12/25/18 21:20 EKG is interpreted by ak showed normal sinus rhythm heart rate of 70. There is borderline left ventricular hypertrophy. There is no gross evidence for acute [place] or ischemia noted. There is no change in comparison to previous EKG reviewed from 03/01/2017. Discharge - Discharge Clinical Impression: Anxiety Chest pain Qualifiers: Chest pain type: unspecified Qualified Code(s): R07.9 - Chest pain, unspecified Condition: Stable Disposition: HOME, SELF-CARE Instructions: Chest Pain of Unclear Cause ([facility]), Anxiety ([facility]) Prescriptions: Alprazolam [Xanax 0.5 mg Tablet] 0.5 mg PO Q12HP PRN #15 tablet PRN Reason: Forms: Return to Work Referrals: JEFFREY PEDROZA MD [Primary Care Provider] - Follow up in 3-5 days Print Language: Bengali
[2018-12-26 04:52] VITALS: BP 125/85
== END 2018-12-26 00:45 | disposition home or self-care (01) ==
LOC: ER 17:16
DX: F41.9 Anxiety disorder, unspecified (principal); R07.89 Other chest pain; R11.0 Nausea; L25.9 Unspecified contact dermatitis, unspecified cause; E78.00 Pure hypercholesterolemia, unspecified; I10 Essential (primary) hypertension; Z79.899 Other long term (current) drug therapy; Z79.82 Long term (current) use of aspirin; Z88.5 Allergy status to narcotic agent
CPT/HCPCS: 36415; 71046; 80053; 81001; 83880; 84484; 85025; 93005; 93010; 99285

== ENCOUNTER 2020-03-12 13:53 | Emergency (ER) | payer OTHER ==
--- NOTE | 2020-03-12 14:27 | ER Document Report ---
ED Medical Screen (RME) - General Chief Complaint: Rectal Pain Stated Complaint: ABDOMINAL PAIN,RECTAL PAIN Time Seen by Provider: 03/12/20 14:21 Primary Care Provider: JEFFREY PEDROZA MD [Primary Care Provider] - Follow up as needed Mode of Arrival: Ambulatory Information source: Patient Notes: HPI; 54-year-old female presents to the emergency room complaining of c onstipation with hard stools for the past 2 weeks. Tried taking a laxative without relief. History of hemorrhoids with rectal pain. Denies any rectal bleeding. States she had a very small hard bowel movement this morning. Denies any nausea, vomiting, no abdominal pain. No COVID-19 exposure. PE: Alert and oriented x3. Lungs: Clear to auscultation without rales, rhonchi, wheezes. Heart: Regular rate rhythm without murmurs, rubs, gallops. I have greeted and performed a rapid initial assessment of this patient. A comprehensive ED assessment and evaluation of the patient, analysis of test results and completion of the medical decision making process will be conducted by additional ED providers. I have specifically instructed the patient or family members with the patient to immediately return to any nursing staff should anything change in the patient's condition or with their chief complaint. TRAVEL OUTSIDE OF THE [place] IN LAST 30 DAYS: No - Related Data Allergies/Adverse Reactions: codeine [Codeine] Allergy (Severe, Verified 12/25/18 17:57) nausea,dizziness Home Medications: blood pressure med pt does not recall name Past Medical History - Social History Chew tobacco use (# tins/day): No Frequency of alcohol use: None Drug Abuse: None - Past Medical History Cardiac Medical History: Reports: Hx Hypercholesterolemia, Hx Hypertension Denies: Hx Congestive Heart Failure, Hx Coronary Artery Disease, Hx DVT, Hx Heart Attack, Hx Pulmonary Embolism Pulmonary Medical History: Denies: Hx Asthma, Hx Bronchitis, Hx COPD, Hx Pneumonia Neurological Medical History: Reports: Hx Cerebrovascular Accident, Hx Migraine. Denies: Hx Seizures Endocrine Medical History: Denies: Hx Diabetes Mellitus Type 1, Hx Diabetes Mellitus Type 2, Hx Hyperthyroidism, Hx Hypothyroidism Renal/ Medical History: Denies: Hx Peritoneal Dialysis GI Medical History: Reports: Hx Gastroesophageal Reflux Disease. Denies: Hx Cirrhosis, Hx Hepatitis Musculoskeltal Medical History: Reports Hx Arthritis - Primarily involving her right knee Psychiatric Medical History: Reports: Hx Anxiety Denies: Hx Depression Infectious Medical History: Denies: Hx Hepatitis Past Surgical History: Reports: Hx Orthopedic Surgery - right carpal tunnel surgery 2011; right knee surgery. - Immunizations Immunizations up to date: Yes Hx Diphtheria, Pertussis, Tetanus Vaccination: Yes Physical Exam - Vital signs Vitals: Temp Pulse Resp BP Pulse Ox 98.3 F 95 20 149/94 H 95 03/12/20 13:58 03/12/20 13:58 03/12/20 13:58 03/12/20 13:58 03/12/20 13:58 Course - Vital Signs Vital signs: Temp Pulse Resp BP Pulse Ox 98.3 F 95 20 149/94 H 95 03/12/20 13:58 03/12/20 13:58 03/12/20 13:58 03/12/20 13:58 03/12/20 13:58 Doctor's Discharge - Discharge Referrals: JEFFREY PEDROZA MD [Primary Care Provider] - Follow up as needed
--- NOTE | 2020-03-12 15:04 | RADIOLOGY REPORT (SQ) ---
EXAM DESCRIPTION: KUB/ABDOMEN (SINGLE VIEW) IMAGES COMPLETED DATE/TIME: 03/12/2020 2:46 pm REASON FOR STUDY: abdominal pain COMPARISON: 05/14/2015 NUMBER OF VIEWS: One view. TECHNIQUE: Supine radiographic image of the abdomen acquired. LIMITATIONS: None. FINDINGS: BOWEL GAS PATTERN: Normal bowel gas pattern. No dilated loops. CALCIFICATIONS: No suspicious calcifications. SOFT TISSUES: No gross mass or suggestion of organomegaly. HARDWARE: None in the abdomen. BONES: No acute fracture. No worrisome bone lesions. OTHER: No other significant finding. IMPRESSION: 1. NO RADIOGRAPHIC EVIDENCE FOR ACUTE ABDOMINAL DISEASE. TECHNICAL DOCUMENTATION: JOB ID: [id number] [employer]- All Rights Reserved Reading location - IP/workstation name: [email or web address]
[2020-03-12 15:13] LABS: ABSOLUTE EOSINOPHILS # (AUTO) 0.1 10^3/uL (0.0-0.6); ABSOLUTE LYMPHOCYTES (AUTO) 2.2 10^3/uL (0.5-4.7); ABSOLUTE MONOCYTES (AUTO) 0.4 10^3/uL (0.1-1.4); ABSOLUTE NEUT (AUTO) 4.4 10^3/uL (1.7-8.2); BASOPHILS % (AUTO) 0.5 % (0-2); EOSINOPHILS % (AUTO) 1.9 % (0-6); HEMATOCRIT 36.1 % (36.0-47.0); LYMPHOCYTES % (AUTO) 31.1 % (13-45); MEAN CORPUSCULAR HEMOGLOBIN 27.7 pg (27.0-33.4); MEAN CORPUSCULAR HGB CONC 33.4 g/dL (32.0-36.0); MEAN CORPUSCULAR VOLUME 83 fl (80-97); MONOCYTES % (AUTO) 5.3 % (3-13); PLATELET COUNT 234 10^3/uL (150-450); RED BLOOD COUNT 4.35 10^6/uL (3.72-5.28); RED CELL DISTRIBUTION WIDTH 14.1 % (11.5-14.0); SEGMENTED NEUTROPHILS % (AUTO) 61.2 % (42-78); TOTAL CELLS COUNTED % (AUTO) 100 %; WHITE BLOOD COUNT 7.2 10^3/uL (4.0-10.5)
[2020-03-12 15:38] LABS: ALBUMIN 4.5 g/dL (3.5-5.0); ALKALINE PHOSPHATASE 83 U/L (38-126); ANION GAP 5 (5-19); ASPARTATE AMINO TRANSFERASE 30 U/L (14-36); BILIRUBIN,DIRECT 0.2 mg/dL (0.0-0.4); BILIRUBIN,TOTAL 0.4 mg/dL (0.2-1.3); BLOOD UREA NITROGEN 15 mg/dL (7-20); CALCIUM 9.2 mg/dL (8.4-10.2); CARBON DIOXIDE 29 mmol/L (22-30); CHLORIDE 104 mmol/L (98-107); GLUCOSE 99 mg/dL (75-110); POTASSIUM 4.3 mmol/L (3.6-5.0); TOTAL PROTEIN 7.2 g/dL (6.3-8.2)
[2020-03-12] MEDS ORDERED: MINERAL OIL 30 ML UDCUP PR ONE (17:19)
[2020-03-12 17:38] LABS: APPEARANCE,URINE CLEAR; BILIRUBIN,URINE NEGATIVE (NEGATIVE); COLOR,URINE STRAW; GLUCOSE, URINE NEGATIVE (NEGATIVE); KETONES,URINE NEGATIVE (NEGATIVE); LEUKOCYTE ESTERASE,URINE NEGATIVE (NEGATIVE); NITRITE,URINE NEGATIVE (NEGATIVE); PROTEIN,URINE NEGATIVE (NEGATIVE); URINE SPECIFIC GRAVITY 1.014; UROBILINOGEN,URINE NEGATIVE mg/dL (<2.0)
--- NOTE | 2020-03-12 18:02 | ER Document Report ---
ED General - General Chief Complaint: Rectal Pain Stated Complaint: ABDOMINAL PAIN,RECTAL PAIN Time Seen by Provider: 03/12/20 14:21 Primary Care Provider: JEFFREY PARADA MD [Primary Care Provider] - Follow up as needed Mode of Arrival: Ambulatory TRAVEL OUTSIDE OF THE [place] IN LAST 30 DAYS: No - HPI Notes: Chief complaint: Constipation, abdominal pain and rectal pain History of present illness: 54-year-old female followed by Dr. Parada with longstanding history of functional bowel syndrome presents now with no bowel movement in almost 2 weeks with complaint of left lower abdominal pain, rectal pain and inflamed hemorrhoids. No rectal bleeding. Mild nausea. No vomiting. No fever chills. No dysuria. - Related Data Allergies/Adverse Reactions: codeine [Codeine] Allergy (Severe, Verified 12/25/18 17:57) nausea,dizziness Home Medications: blood pressure med pt does not recall name Past Medical History - General Information source: Patient - Social History Smoking Status: Never Smoker Chew tobacco use (# tins/day): No Frequency of alcohol use: None Drug Abuse: None Family History: DM, Hypertension, Other - Autistic son - Past Medical History Cardiac Medical History: Reports: Hx Hypercholesterolemia, Hx Hypertension Denies: Hx Congestive Heart Failure, Hx Coronary Artery Disease, Hx DVT, Hx H eart Attack, Hx Pulmonary Embolism Pulmonary Medical History: Denies: Hx Asthma, Hx Bronchitis, Hx COPD, Hx Pneumonia Neurological Medical History: Reports: Hx Cerebrovascular Accident, Hx Migraine. Denies: Hx Seizures Endocrine Medical History: Denies: Hx Diabetes Mellitus Type 1, Hx Diabetes Mellitus Type 2, Hx Hyperthyroidism, Hx Hypothyroidism Renal/ Medical History: Denies: Hx Peritoneal Dialysis GI Medical History: Reports: Hx Gastroesophageal Reflux Disease. Denies: Hx Cirrhosis, Hx Hepatitis Musculoskeletal Medical History: Reports Hx Arthritis - Primarily involving her right knee Psychiatric Medical History: Reports: Hx Anxiety Denies: Hx Depression Infectious Medical History: Denies: Hx Hepatitis Past Surgical History: Reports: Hx Orthopedic Surgery - right carpal tunnel surgery 2010; right knee surgery. - Immunizations Immunizations up to date: Yes Hx Diphtheria, Pertussis, Tetanus Vaccination: Yes Review of Systems - Review of Systems Notes: Constitutional: Negative for fever. HENT: Negative for sore throat. Eyes: Negative for visual changes. Cardiovascular: Negative for chest pain. Respiratory: Negative for shortness of breath. Gastrointestinal: As per HPI. Genitourinary: Negative for dysuria. Musculoskeletal: Negative for back pain. Skin: Negative for rash. Neurological: Negative for headaches, weakness or numbness. 10 point ROS negative except as marked above and in HPI. Physical Exam - Vital signs Vitals: Temp Pulse Resp BP Pulse Ox 98.3 F 95 20 149/94 H 95 03/12/20 13:58 03/12/20 13:58 03/12/20 13:58 03/12/20 13:58 03/12/20 13:58 Course - Re-evaluation Re-evalutation: 03/12/20 19:55 Excellent results from warm soapsuds/mineral oil enema. We will send patient home on MiraLAX and also prescribe some topical treatment for her hemorrhoids and advised warm sitz bath's. She is to follow-up with her primary care physician. Findings, clinical impression and plan of treatment have been discussed with patient/family. Understanding of current findings and recommendations has been acknowledged by them and there is agreement regarding disposition and follow-up. - Vital Signs Vital signs: Temp Pulse Resp BP Pulse Ox 98.3 F 95 20 149/94 H 95 03/12/20 13:58 03/12/20 13:58 03/12/20 13:58 03/12/20 13:58 03/12/20 13:58 - Laboratory Results Result Diagrams: 03/12/20 14:54 03/12/20 14:54 Laboratory Results Interpreted: 03/12/20 03/12/20 14:54 17:00 RDW 14.1 H Urine Ascorbic Acid 20 H Critical Laboratory Results Reviewed: No Critical Results - Radiology Results Critical Radiology Results Reviewed: No Critical Results Discharge - Discharge Clinical Impression: Obstipation, Combined hemorrhoids Condition: Stable Disposition: HOME, SELF-CARE Additional Instructions: Constipation Constipation is a common problem. It is especially likely as you get older. Constipation is a common cause of abdominal pain, but sometimes causes no symptoms at all. Causes of constipation include certain medications, dehydration, diets, inactivity, and low-fiber intake. Rarely, it can be a symptom of underlying disease. The physician has evaluated you for this. Avoid constipation by eating a diet high in fiber, fruits, and vegetables. Drink plenty of liquids. Get regular exercise. If possible, avoid constipating medicines like narcotic pain medication. Some vitamin tablets can cause constipation. Stool softeners may be needed for difficult cases. An ex cellent stool softener is Konsyl which is available at [employer], and [employer] drug store. Just add a teaspoon to a glass of pineapple or orange juice daily or twice a day if needed. Laxatives are useful for occasional constipation. You should use them only when necessary. Too-frequent use can make your bowels dependent on them. Some over the counter laxatives available without prescription are: Milk of Magnesia, 1-2 tablespoons twice a day Dulcolax, 5 mg pill or 10 mg suppository. Citrate of Magnesia, 4-5 ounces a day for a day or two For acute constipation, Fleet's Enemas and Dulcolax suppositories are helpful. Chronic, terminal clerk use of laxatives or enemas is not a good idea. Your bowel may become dependant on them. You do not need to have a bowel movement every day. Many people do fine with a bowel movement every three or four days. You should call your doctor or return for re-evaluation if you pass blood in the stool, or if you develop fever or increasing abdominal pain. Hemorrhoids You have hemorrhoids. These are formed by enlargement of veins around the anus. The cause is increased pressure in the veins, from or straining at bowel movements. Hemorrhoids often cause itching and bleeding with bowel movements. When a hemorrhoid becomes clotted, severe pain and swelling result. Soothing creams and suppositories are often prescribed. Warm sitz-baths may also decrease pain, swelling, and itching. Eat a high-fiber diet. Stool softeners such as Metamucil will help. Keep the area very clean. Medicated cleansing pads (such as Tucks) are useful after bowel movements. A hose-mounted shower unit (like a shower ma ssager at low water pressure) can be used to clean around tender hemorrhoid tags. You should call the doctor or return if you develop fever, increasing pain, or an enlarging mass around the anus, or if you simply fail to improve with treatment. Return here as needed for new or worsening symptoms. Schedule follow-up visit with your doctor within the next 1 week. Prescriptions: Hydrocortisone Acetate [Anusol Hc 25 mg Supp.rect] 1 supp.rect RI BID #14 supp.rect Polyethylene Glycol 3350 [Miralax] 1 cap PO DAILY #527 powder Referrals: JEFFREY PARADA MD [Primary Care Provider] - Follow up as needed
[2020-03-12 20:07] VITALS: BP 142/89
== END 2020-03-12 20:07 | disposition home or self-care (01) ==
LOC: ER 13:53
DX: K59.00 Constipation, unspecified (principal); K64.9 Unspecified hemorrhoids; R11.0 Nausea; Z79.899 Other long term (current) drug therapy
CPT/HCPCS: 99284; 36415; 85025; 80053; 81001; 74018; J3490